=== PATIENT | male | born 1970 | race Caucasian/White ===

== ENCOUNTER → 2017-05-30 15:31 | Outpatient (REF) | payer MEDICAID, SELFPAY ==
[2017-05-30 19:18] LABS: Basophils # 0.1 K/mm3 (0-0.2); Basophils % 0.6 % (0.1-2.0); Eosinophils # 0.2 K/mm3 (0.0-0.4); Eosinophils % 1.4 % (0.1-12.0); Hematocrit 49.3 % (42.0-52.0); Hemoglobin 16.5 g/dL (14.1-18.0); Lymphocytes # 3.5 K/mm3 (0.7-4.5); Lymphocytes % 27.9 K/mm3 (10-50); Mean Corpuscular HGB Conc 33.4 g/dL (31.8-35.4); Mean Corpuscular Hemoglobin 29.5 pg (27.0-31.2); Mean Corpuscular Volume 88.1 fl (80-94); Mean Platelet Volume 8.2 fl (7.4-10.4); Monocytes # 0.8 K/mm3 (0.1-1.0); Monocytes % 6.2 % (1.7-9.3); Neutrophils % 63.8 % (37.0-80.0); Platelet Count 482 K/mm3 (142-424); Red Cell Distribution Width 12.6 % (11.5-17.5); White Blood Count 12.5 K/mm3 (4.8-10.8)
[2017-05-30 19:51] LABS: Alanine Aminotransferase 36 U/L (12-78); Albumin/Globulin Ratio 1.4 (1.1-1.8); Alkaline Phosphatase 65 U/L (46-116); Anion Gap 13.8 mEq/L (5-15); Aspartate Amino Transferase 18 U/L (15-37); Bilirubin,Total 0.4 mg/dL (0.2-1.0); Blood Urea Nitrogen 11 mg/dL (7-18); Calcium 9.3 mg/dL (8.5-10.1); Carbon Dioxide 29 mmol/L (21.0-32.0); Chloride 105 mmol/L (98-107); Chol/HDL Ratio 6.8 (1-3.5); Cholesterol 285 mg/dL (140-200); Creatinine,Serum 0.94 mg/dL (0.70-1.30); Estimated Glomerular Filt Rate 86 ml/min (>60); Free T4 (Free Thyroxine) 0.99 ng/dl (0.76-1.46); GFR (African American) 104 ML/MIN (>60); Globulin 3.6 gm/dl (1.3-3.2); Glucose 78 mg/dL (74-106); HDL Cholesterol 42 mg/dL (27-67); LDL Cholesterol 174 mg/dL (0-130); Potassium 4.8 mmoL/L (3.5-5.1); Sodium 143 mmol/L (136-145); Thyroid Stimulating Hormone 2.62 uIU/ml (0.358-3.740); Total Protein,Serum 8.6 gm/dL (6.4-8.2); Triglycerides 346 mg/dL (30-200); VLDL Cholesterol 69 mg/dL (0-40)
[2017-06-01 09:19] LABS: Hep A Ab, IgM Negative (Negative); Hepatitis B Core Antibody IgM Negative (Negative); Hepatitis B Surface Antigen Negative (Negative)
[2017-06-01 11:11] LABS: Hepatitis C Antibody 0.1 s/co ratio (0.0-0.9)
== END ==
LOC: LAB 15:31
PROVIDERS: Visit Provider Emergency Medicine
DX: I10 Essential (primary) hypertension (principal); M54.9 Dorsalgia, unspecified; Z86.59 Personal history of other mental and behavioral disorders
CPT/HCPCS: 80053; 80061; 80074; 84439; 84443; 85025

== ENCOUNTER 2017-06-20 16:00 | Outpatient (RCR) | payer MEDICAID, SELFPAY ==
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
== END 2017-06-20 16:05 | disposition home or self-care (01) ==
LOC: PT 16:00
PROVIDERS: Family Provider Internal Medicine Adolescent Medicine; PCP Emergency Medicine; Visit Provider Physician Assistant
DX: M54.9 Dorsalgia, unspecified (principal)
CPT/HCPCS: 97010; 97014; 97035; 97110; G0283

== ENCOUNTER → 2020-01-30 17:50 | Outpatient (CLI) | payer OTHER, SELFPAY ==
[2020-01-30 18:22] LABS: Basophils # 0.1 K/mm3 (0-0.2); Basophils % 0.7 % (0.1-2.0); Eosinophils # 0.1 K/mm3 (0.0-0.4); Eosinophils % 0.8 % (0.1-12.0); Hematocrit 46.3 % (42.0-52.0); Lymphocytes # 2.3 K/mm3 (0.7-4.5); Mean Corpuscular HGB Conc 32.5 g/dL (31.8-35.4); Mean Corpuscular Hemoglobin 29.1 pg (27.0-31.2); Mean Corpuscular Volume 89.7 fl (80-94); Mean Platelet Volume 7.4 fl (7.4-10.4); Monocytes # 0.8 K/mm3 (0.1-1.0); Monocytes % 6.6 % (1.7-9.3); Neutrophils # 8.2 K/mm3 (1.8-7.8); Neutrophils % 71.9 % (37.0-80.0); Platelet Count 483 K/mm3 (142-424); Red Blood Count 5.16 M/mm3 (4.60-6.20); Red Cell Distribution Width 13.9 % (11.5-17.5); White Blood Count 11.4 K/mm3 (4.8-10.8)
[2020-01-30 18:24] LABS: Chloride 101 mmol/L (98-107)
[2020-01-30 18:25] LABS: Potassium 5.2 mmoL/L (3.5-5.1); Sodium 142 mmol/L (136-145)
[2020-01-30 18:27] LABS: Alanine Aminotransferase 27 U/L (12-78); Alkaline Phosphatase 66 U/L (38-126); Aspartate Amino Transferase 32 U/L (17-59); Bilirubin,Total 0.6 mg/dl (0.2-1.3); Blood Urea Nitrogen 9 mg/dl (9-20); Estimated Glomerular Filt Rate 90 ml/min (>60); GFR (African American) 109 ML/MIN (>60)
[2020-01-30 18:28] LABS: Albumin/Globulin Ratio 1.6 (1.1-1.8); Anion Gap 17.2 mEq/L (5-15); Calcium 10.5 mg/dl (8.4-10.2); Carbon Dioxide 29 mmol/L (22.0-30.0); Chol/HDL Ratio 7.4 (1-3.5); Cholesterol 287 mg/dl (140-200); Globulin 3.2 g/dL (1.3-3.2); Glucose 122 mg/dl (74-100); HDL Cholesterol 39 mg/dl (40-60); Total Protein,Serum 8.2 g/dl (6.3-8.2); Triglycerides 239 mg/dl (30-150); VLDL Cholesterol 48 mg/dL (0-40)
[2020-01-30 18:39] LABS: Direct LDL Cholesterol 193.82 mg/dL (100-129)
[2020-01-30 18:46] LABS: Free T4 (Free Thyroxine) 1.26 ng/dl (0.78-2.19)
[2020-01-30 18:59] LABS: Thyroid Stimulating Hormone 3.39 uIU/mL (0.465-4.68)
== END ==
PROVIDERS: Visit Provider Emergency Medicine
DX: R53.83 Other fatigue (principal)
CPT/HCPCS: 80053; 80061; 84439; 84443; 85025

== ENCOUNTER → 2020-09-06 08:50 | Outpatient (CLI) | payer OTHER, SELFPAY ==
[2020-09-06 09:46] LABS: Amphetamine/Metha Screen,Urine Negative ng/ml (<1000)
[2020-09-06 09:47] LABS: Barbiturates Screen,Urine Negative ng/ml (<200); Benzodiazepines Screen,Urine Positive ng/ml (<200)
[2020-09-06 09:48] LABS: Cannabinoid Screen,Urine Negative ng/ml (<50)
[2020-09-06 09:49] LABS: Cocaine Screen,Urine Negative ng/ml (<300); Methadone Screen,Urine Negative ng/ml (<300)
[2020-09-06 09:50] LABS: Opiate Screen,Urine Negative ng/ml (<300)
[2020-09-06 09:51] LABS: Phencyclidine Screen,Urine Negative ng/ml (<25)
== END ==
PROVIDERS: Visit Provider Emergency Medicine
DX: Z79.899 Other long term (current) drug therapy (principal)
CPT/HCPCS: 80305

== ENCOUNTER → 2020-12-01 14:18 | Outpatient (CLI) | payer OTHER, SELFPAY ==
[2020-12-01 14:44] LABS: Amphetamine/Metha Screen,Urine Negative ng/ml (<1000)
[2020-12-01 14:45] LABS: Phencyclidine Screen,Urine Negative ng/ml (<25)
[2020-12-01 14:47] LABS: Barbiturates Screen,Urine Negative ng/ml (<200); Benzodiazepines Screen,Urine Positive ng/ml (<200)
[2020-12-01 14:48] LABS: Cannabinoid Screen,Urine Negative ng/ml (<50); Cocaine Screen,Urine Negative ng/ml (<300)
[2020-12-01 14:49] LABS: Methadone Screen,Urine Negative ng/ml (<300)
[2020-12-01 14:50] LABS: Opiate Screen,Urine Negative ng/ml (<300)
== END ==
PROVIDERS: Visit Provider Emergency Medicine
DX: Z79.899 Other long term (current) drug therapy (principal)
CPT/HCPCS: 80305

== ENCOUNTER → 2021-03-30 14:34 | Outpatient (CLI) | payer OTHER, SELFPAY ==
[2021-03-30 14:59] LABS: Barbiturates Screen,Urine Negative ng/ml (<200)
[2021-03-30 15:00] LABS: Amphetamine/Metha Screen,Urine Negative ng/ml (<1000); Benzodiazepines Screen,Urine Positive ng/ml (<200)
[2021-03-30 15:01] LABS: Cannabinoid Screen,Urine Positive ng/ml (<50)
[2021-03-30 15:02] LABS: Cocaine Screen,Urine Negative ng/ml (<300); Methadone Screen,Urine Negative ng/ml (<300)
[2021-03-30 15:03] LABS: Opiate Screen,Urine Negative ng/ml (<300)
[2021-03-30 15:04] LABS: Phencyclidine Screen,Urine Negative ng/ml (<25)
== END ==
PROVIDERS: Visit Provider Emergency Medicine
DX: Z79.899 Other long term (current) drug therapy (principal)
CPT/HCPCS: 80305

== ENCOUNTER → 2021-07-05 16:00 | Outpatient (CLI) | payer OTHER, SELFPAY ==
[2021-07-05 14:40] LABS: Amphetamine/Metha Screen,Urine Negative ng/ml (<1000)
[2021-07-05 14:41] LABS: Barbiturates Screen,Urine Negative ng/ml (<200); Benzodiazepines Screen,Urine Positive ng/ml (<200)
[2021-07-05 14:42] LABS: Cannabinoid Screen,Urine Positive ng/ml (<50)
[2021-07-05 14:43] LABS: Cocaine Screen,Urine Negative ng/ml (<300)
[2021-07-05 14:44] LABS: Opiate Screen,Urine Negative ng/ml (<300)
[2021-07-05 14:45] LABS: Phencyclidine Screen,Urine Negative ng/ml (<25)
[2021-07-05 15:04] LABS: Methadone Screen,Urine Negative ng/ml (<300)
== END ==
PROVIDERS: Visit Provider Emergency Medicine
DX: Z79.899 Other long term (current) drug therapy (principal)
CPT/HCPCS: 80305

== ENCOUNTER → 2021-10-04 13:52 | Outpatient (CLI) | payer OTHER, SELFPAY ==
[2021-10-04 14:21] LABS: Amphetamine/Metha Screen,Urine Negative ng/ml (<1000)
[2021-10-04 14:22] LABS: Barbiturates Screen,Urine Negative ng/ml (<200); Benzodiazepines Screen,Urine Positive ng/ml (<200)
[2021-10-04 14:23] LABS: Cannabinoid Screen,Urine Positive ng/ml (<50)
[2021-10-04 14:24] LABS: Cocaine Screen,Urine Negative ng/ml (<300); Methadone Screen,Urine Negative ng/ml (<300)
[2021-10-04 14:25] LABS: Opiate Screen,Urine Negative ng/ml (<300)
[2021-10-04 14:26] LABS: Phencyclidine Screen,Urine Negative ng/ml (<25)
== END ==
PROVIDERS: PCP Emergency Medicine; Visit Provider Emergency Medicine
DX: Z79.899 Other long term (current) drug therapy (principal)
CPT/HCPCS: 80305

== ENCOUNTER → 2021-12-28 06:16 | Outpatient (CLI) | payer OTHER, SELFPAY ==
[2021-12-28 13:39] LABS: Amphetamine/Metha Screen,Urine Negative ng/ml (<1000)
[2021-12-28 13:40] LABS: Barbiturates Screen,Urine Negative ng/ml (<200); Benzodiazepines Screen,Urine Positive ng/ml (<200)
[2021-12-28 13:41] LABS: Cannabinoid Screen,Urine Positive ng/ml (<50); Cocaine Screen,Urine Negative ng/ml (<300)
[2021-12-28 13:42] LABS: Methadone Screen,Urine Negative ng/ml (<300)
[2021-12-28 13:43] LABS: Opiate Screen,Urine Negative ng/ml (<300)
[2021-12-28 13:45] LABS: Phencyclidine Screen,Urine Negative ng/ml (<25)
== END ==
PROVIDERS: PCP Emergency Medicine; Visit Provider Emergency Medicine
DX: Z79.899 Other long term (current) drug therapy (principal)
CPT/HCPCS: 80305

== ENCOUNTER → 2022-03-29 15:10 | Outpatient (CLI) | payer OTHER, SELFPAY ==
[2022-03-29 16:00] LABS: Amphetamine/Metha Screen,Urine Negative ng/ml (<1000)
[2022-03-29 16:01] LABS: Barbiturates Screen,Urine Negative ng/ml (<200); Benzodiazepines Screen,Urine Positive ng/ml (<200)
[2022-03-29 16:03] LABS: Cannabinoid Screen,Urine Positive ng/ml (<50); Cocaine Screen,Urine Negative ng/ml (<300)
[2022-03-29 16:04] LABS: Methadone Screen,Urine Negative ng/ml (<300); Opiate Screen,Urine Negative ng/ml (<300)
[2022-03-29 16:05] LABS: Phencyclidine Screen,Urine Negative ng/ml (<25)
== END ==
PROVIDERS: PCP Emergency Medicine; Visit Provider Emergency Medicine
DX: Z79.899 Other long term (current) drug therapy (principal)
CPT/HCPCS: 80305

== ENCOUNTER 2022-06-02 10:12 | Emergency (ER) | payer OTHER, SELFPAY ==
[2022-06-02 10:58] VITALS: BP 99/68; PULSE 63; RESP 14; TEMP 36.4; O2SAT 97; BMI 26.6
[2022-06-02 11:10] VITALS: BP 101/72; PULSE 63; RESP 14; TEMP 36.4; O2SAT 97; BMI 26.5
--- NOTE | 2022-06-02 11:25 | EXP.UTC ---
Discharge Plan Disposition Patient Disposition: Home, Self-Care Condition: Good Prescriptions Prescriptions: New cephalexin 500 mg capsule 500 mg PO Q8H 7 Days Qty: 21 0RF No Action buprenorphine-naloxone 8-2 mg tablet, sublingual 2 tab SUBLINGUAL DAILY Label Comments: 2 TABLETS BY MOUTH SUBLINGUALLY BY MOUTH ONCE DAILY famotidine 20 mg tablet See Rx Instructions .ROUTE .COMPLEX Qty: 90 0RF Dose Instruction: TAKE 1 TABLET BY MOUTH ONCE DAILY Rx Instructions: TAKE 1 TABLET BY MOUTH ONCE DAILY alprazolam [Xanax] 0.5 mg tablet 0.5 mg PO QID Qty: 120 2RF lisinopril 40 mg tablet See Rx Instructions .ROUTE .COMPLEX Qty: 90 1RF Dose Instruction: TAKE 1 TABLET BY MOUTH ONCE DAILY Rx Instructions: TAKE 1 TABLET BY MOUTH ONCE DAILY escitalopram oxalate 10 mg tablet See Rx Instructions .ROUTE .COMPLEX Qty: 90 1RF Dose Instruction: TAKE 1 TABLET BY MOUTH DAILY Rx Instructions: TAKE 1 TABLET BY MOUTH DAILY hydrochlorothiazide 12.5 mg capsule See Rx Instructions .ROUTE .COMPLEX Qty: 90 1RF Dose Instruction: TAKE 1 CAPSULE BY MOUTH ONCE DAILY Rx Instructions: TAKE 1 CAPSULE BY MOUTH ONCE DAILY amlodipine 10 mg tablet See Rx Instructions .ROUTE .COMPLEX Qty: 90 1RF Dose Instruction: TAKE 1 TABLET BY MOUTH DAILY Rx Instructions: TAKE 1 TABLET BY MOUTH DAILY atorvastatin 10 mg tablet See Rx Instructions .ROUTE .COMPLEX Qty: 90 1RF Dose Instruction: TAKE 1 TABLET BY MOUTH AT BEDTIME Rx Instructions: TAKE 1 TABLET BY MOUTH AT BEDTIME Referrals Follow up/Referrals: Arnold Arias MD [Primary Care Provider] - See instructions Activity Restrictions/Add. Instructions Additional Instructions/Restrictions: Over the counter Motrin and/or Tylenol for pain Clean wound with antibacterial soap and water and pat dry Take antibiotics as prescribed Follow up with your Family Doctor if no improvement or any worsening of symptoms Straight to ER if any life threatening symptoms Clinical Impressions Clinical Impression: Dog bite Instructions Patient Instructions: Animal Bites, DI for Animal Bites, DI for Dog Bite Discharge ED Provider: Sandy Lam [facility] HPI General Stated complaint: dog bite on Lt thigh Mode of Arrival: Ambulatory Source of Information: Patient Limitations: No Limitations Time Seen by Provider: 06/02/22 11:25 Description of Symptoms (Recalled from Triage Doc. by RN): Reports getting bit by his friends dog 2 days ago on his left thigh. Concerned about infection and pain. No redness or drainage noted, does have bruising around the bite area. Reports he is not concerned about rabies. History of Present Illness Provider Complaint: Patient states that he was bitten by a friends dog a couple days ago on his left thigh area States that the dog has had all its shots and they have put it up to watch it States that he was worried the bite may be getting infected it was starting to look a little red and he has been having pain in the area didnt know if he needed something else for pain or not States that he is not worried about rabies he is worried about the infection and pain Related Data Home Medications Medication Instructions Recorded Confirmed buprenorphine 8 mg-naloxone 2 mg 2 tab sublingual DAILY 12/23/19 03/29/22 sublingual tablet Previous Rx's Medication Instructions Recorded famotidine 20 mg tablet See Rx Instructions .Route 10/04/21 .COMPLEX #90 tabs amlodipine 10 mg tablet See Rx Instructions .Route 03/28/22 .COMPLEX #90 tabs atorvastatin 10 mg tablet See Rx Instructions .Route 03/28/22 .COMPLEX #90 tabs escitalopram oxalate 10 mg tablet See Rx Instructions .Route 03/28/22 .COMPLEX #90 tabs hydrochlorothiazide 12.5 mg capsule See Rx Instructions .Route 03/28/22 .COMPLEX #90 caps lisinopril 40 mg tablet See Rx Instructions .Route 03/28/22 .COMPLEX #9
[2022-06-02 11:38] VITALS: BP 101/72; PULSE 63; RESP 14; TEMP 36.4; O2SAT 97
== END 2022-06-02 11:42 | disposition home or self-care (01) ==
PROVIDERS: Emergency Provider Nurse Practitioner; PCP Emergency Medicine
DX: S70.312A Abrasion, left thigh, initial encounter (principal); W54.0XXA Bitten by dog, initial encounter
CPT/HCPCS: 99212; 99213; G0463

== ENCOUNTER 2022-06-10 12:03 | Emergency (ER) | payer OTHER, SELFPAY ==
[2022-06-10 12:05] VITALS: BP 123/66; PULSE 88; RESP 18; TEMP 36.7; O2SAT 99; BMI 26.1
--- NOTE | 2022-06-10 12:24 | HMH.EDGENADL ---
Discharge Plan Disposition Patient Disposition: Home, Self-Care Prescriptions Prescriptions: No Action buprenorphine-naloxone 8-2 mg tablet, sublingual 2 tab SUBLINGUAL DAILY Label Comments: 2 TABLETS BY MOUTH SUBLINGUALLY BY MOUTH ONCE DAILY famotidine 20 mg tablet See Rx Instructions .ROUTE .COMPLEX Qty: 90 0RF Dose Instruction: TAKE 1 TABLET BY MOUTH ONCE DAILY Rx Instructions: TAKE 1 TABLET BY MOUTH ONCE DAILY alprazolam [Xanax] 0.5 mg tablet 0.5 mg PO QID Qty: 120 2RF lisinopril 40 mg tablet See Rx Instructions .ROUTE .COMPLEX Qty: 90 1RF Dose Instruction: TAKE 1 TABLET BY MOUTH ONCE DAILY Rx Instructions: TAKE 1 TABLET BY MOUTH ONCE DAILY escitalopram oxalate 10 mg tablet See Rx Instructions .ROUTE .COMPLEX Qty: 90 1RF Dose Instruction: TAKE 1 TABLET BY MOUTH DAILY Rx Instructions: TAKE 1 TABLET BY MOUTH DAILY hydrochlorothiazide 12.5 mg capsule See Rx Instructions .ROUTE .COMPLEX Qty: 90 1RF Dose Instruction: TAKE 1 CAPSULE BY MOUTH ONCE DAILY Rx Instructions: TAKE 1 CAPSULE BY MOUTH ONCE DAILY amlodipine 10 mg tablet See Rx Instructions .ROUTE .COMPLEX Qty: 90 1RF Dose Instruction: TAKE 1 TABLET BY MOUTH DAILY Rx Instructions: TAKE 1 TABLET BY MOUTH DAILY atorvastatin 10 mg tablet See Rx Instructions .ROUTE .COMPLEX Qty: 90 1RF Dose Instruction: TAKE 1 TABLET BY MOUTH AT BEDTIME Rx Instructions: TAKE 1 TABLET BY MOUTH AT BEDTIME cephalexin 500 mg capsule 500 mg PO Q8H 7 Days Qty: 21 0RF Referrals Follow up/Referrals: Arnold Arias MD [Primary Care Provider] - See instructions Activity Restrictions/Add. Instructions Additional Instructions/Restrictions: Your dog bite wounds are healing well. There is no evidence of any soft tissue infection. Your neurologic and vascular exam is normal. Your lower extremities are symmetrically normal and there is no clinical concern for DVT at this point. Please continue follow-up with your primary care doctor as indicated and continue and complete antibiotics Clinical Impressions Clinical Impression: Encounter for wound re-check Instructions Patient Instructions: Animal Bites Discharge ED Provider: Christopher Owusu General Adult HPI General Chief complaint: Animal Bite Stated complaint: dog bite LT thigh Time Seen by Provider: 06/10/22 12:24 Mode of Arrival: Ambulatory Limitations: No Limitations Description of Symptoms (Recalled from ER Triage Doc. by RN): PT WITH C/O DOG BITE TO OUTER LEFT THIGH EARLIER THIS MONTH, PT SEEN IN [facility]. C/O LEFT LEG SWELLING AND TINGLING OF LEFT FOOT History of Present Illness HPI narrative: Patient is a 52-year-old male who presents 1 week following a dog bite for wound reevaluation of his left lateral thigh. States that he was seen in the urgent treatment clinic and was given an antibiotic, he is unsure of what antibiotic this is. States that he has had some pain shooting down his leg all the way into his heel and has had some difficulty with walking secondary to the pain and wanted to make sure that everything was okay today. States that he at times also has [id number] type sensation in that leg. He claims that he came to the emergency department today to be evaluated for his wound. He subjectively states that he feels like his leg is heavier than normal and may be swollen as well. Related Data Home Medications Medication Instructions Recorded Confirmed buprenorphine 8 mg-naloxone 2 mg 2 tab sublingual DAILY 12/23/19 03/29/22 sublingual tablet Previous Rx's Medication Instructions Recorded famotidine 20 mg tablet See Rx Instructions .Route 10/04/21 .COMPLEX #90 tabs amlodipine 10 mg tablet See Rx Instructions .Route 03/28/22 .COMPLEX #90 tabs atorvastatin 10 mg tablet See Rx Instructions .Route 03/28/22 .COMPLEX #90 tabs escitalopram oxalate 10 mg tablet See Rx Instruc
--- NOTE | 2022-06-10 12:25 | PC.NURSE ---
DR LUNA AT BEDSIDE
[2022-06-10 12:45] VITALS: BP 120/70; PULSE 80; RESP 18; TEMP 36.7; O2SAT 99
== END 2022-06-10 12:45 | disposition home or self-care (01) ==
PROVIDERS: Emergency Provider Student in an Organized Health Care Education/Training Program; PCP Emergency Medicine
DX: Z48.00 Encounter for change or removal of nonsurgical wound dressing (principal)
CPT/HCPCS: 99282

== ENCOUNTER → 2022-07-13 13:53 | Outpatient (CLI) | payer OTHER, SELFPAY ==
--- NOTE | 2022-07-13 13:53 | CA_ITS ---
FINAL REPORT TECHNIQUE: Color Doppler, duplex Doppler and compression sonography of the left lower extremity deep venous systems was performed. CLINICAL HISTORY: left calf pain, edema, patient states he had a dog bite his left leg x 1 month ago. Since this time his leg has been giving out on him. HTN, HLD, smoker. FINDINGS: There is no evidence of deep venous thrombosis from the level of the groin to the calf. The veins are patent and compressible. IMPRESSION: No evidence of deep venous thrombosis left lower extremity. Reviewed, Interpreted and Dictated by Ramses Weeks III, MD Transcribed by Lorin Lezama Authenticated and [facility]
== END ==
PROVIDERS: PCP Emergency Medicine; Visit Provider Nurse Practitioner Family
DX: M79.662 Pain in left lower leg (principal); R60.0 Localized edema
CPT/HCPCS: 93971

== ENCOUNTER → 2022-09-06 09:30 | Outpatient (CLI) | payer OTHER, SELFPAY ==
[2022-09-06 17:21] LABS: Amphetamine/Metha Screen,Urine Negative ng/ml (<1000)
[2022-09-06 17:22] LABS: Barbiturates Screen,Urine Negative ng/ml (<200); Benzodiazepines Screen,Urine Positive ng/ml (<200)
[2022-09-06 17:23] LABS: Cannabinoid Screen,Urine Negative ng/ml (<50); Cocaine Screen,Urine Negative ng/ml (<300)
[2022-09-06 17:24] LABS: Methadone Screen,Urine Negative ng/ml (<300)
[2022-09-06 17:25] LABS: Opiate Screen,Urine Negative ng/ml (<300); Phencyclidine Screen,Urine Negative ng/ml (<25)
== END ==
PROVIDERS: PCP Emergency Medicine; Visit Provider Emergency Medicine
DX: Z79.899 Other long term (current) drug therapy (principal)
CPT/HCPCS: 80305

== ENCOUNTER 2022-09-19 12:03 | Emergency (ER) | payer OTHER, SELFPAY ==
[2022-09-19] VITALS (24 sets, daily range): BP systolic 65–127; BP diastolic 35–73; PULSE 48–126; RESP 14–18; TEMP 36.4–37.2; O2SAT 92–99; BMI 26.1
--- NOTE | 2022-09-19 12:10 | XR_ITS ---
FINAL REPORT CLINICAL HISTORY: soa FINDINGS: The heart size is normal. The mediastinum is within normal limits. There is no acute cardiopulmonary process. There is no pleural effusion. There is no pneumothorax. The bony thorax is intact. IMPRESSION: No acute cardiopulmonary process. Reviewed, Interpreted and Dictated by Ramses Weeks III, MD Transcribed by Naeem Betts Authenticated and [facility]
--- NOTE | 2022-09-19 12:11 | CT_ITS ---
FINAL REPORT TECHNIQUE: Postcontrast axial images through the abdomen and pelvis were performed. This study was performed with techniques to keep radiation doses as low as reasonably achievable, (ALARA). Individualized dose reduction techniques using automated exposure control or adjustment of mA and/or kV according to the patient's size were employed. CLINICAL HISTORY: abdominal pain trauma FINDINGS: Abdomen: The lung bases are clear. The liver is mildly fatty infiltrated. There is significant gallbladder wall thickening with adjacent inflammation having an appearance worrisome for acute cholecystitis. The spleen is unremarkable. The adrenals are normal. The pancreas is unremarkable. The kidneys enhance appropriately. The aorta is normal in caliber. There are multiple fluid-filled bowel loops that are nonspecific. No findings for mechanical bowel obstruction are identified. Pelvis: The appendix is normal. The urinary bladder is unremarkable. There is a small amount of free fluid which is likely reactive. There is a left L5 pars defect. IMPRESSION: Significant gallbladder wall thickening with adjacent inflammation worrisome for acute cholecystitis. Consider right upper quadrant ultrasound and/or nuclear medicine HIDA scan. Nonspecific bowel gas pattern. Reviewed, Interpreted and Dictated by Ramses Weeks III, MD Transcribed by Naeem Betts Authenticated and [facility]
--- NOTE | 2022-09-19 12:21 | PC.NURSE ---
ED MD AT BEDSIDE, MADE AWARE OF PT' S BLOOD PRESSURE
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
[2022-09-19 12:37] LABS: Basophils # 0.1 K/mm3 (0-0.2); Basophils % 0.2 % (0.1-2.0); Eosinophils # 0.3 K/mm3 (0.0-0.4); Eosinophils % 1.4 % (0.1-12.0); Hematocrit 43.5 % (42.0-52.0); Hemoglobin 14.4 g/dL (14.1-18.0); Lymphocytes % 8.6 % (10-50); Mean Corpuscular HGB Conc 33.1 g/dL (31.8-35.4); Mean Corpuscular Hemoglobin 30.9 pg (27.0-31.2); Mean Corpuscular Volume 93.3 fl (80-94); Mean Platelet Volume 7.6 fl (7.4-10.4); Monocytes # 1.6 K/mm3 (0.1-1.0); Monocytes % 6.8 % (1.7-9.3); Neutrophils # 19.2 K/mm3 (1.8-7.8); Platelet Count 439 K/mm3 (142-424); Red Blood Count 4.66 M/mm3 (4.60-6.20); Red Cell Distribution Width 12.8 % (11.5-17.5); White Blood Count 23.2 K/mm3 (4.8-10.8)
[2022-09-19 12:40] LABS: MANUAL DIFFERENTIAL MANUAL DIFFERENTIAL (MANUAL DIFF)
[2022-09-19 12:49] LABS: Lymphocytes % 14 % (10-50); Monocytes % 8 % (2-9); Neutrophils % 78 % (42-76); Platelet Estimate Slight Increase; RBC Morphology Normal; Total Cells Counted 100
[2022-09-19 12:52] LABS: Alanine Aminotransferase 37 U/L (12-78); Albumin Level 4.5 g/dl (3.5-5.0); Albumin/Globulin Ratio 1.4 (1.1-1.8); Alkaline Phosphatase 54 U/L (38-126); Anion Gap 20.3 mEq/L (5-15); Aspartate Amino Transferase 40 U/L (17-59); Bilirubin,Total 1.2 mg/dl (0.2-1.3); Blood Urea Nitrogen 21 mg/dl (9-20); Calcium 8.8 mg/dl (8.4-10.2); Carbon Dioxide 31 mmol/L (22.0-30.0); Chloride 88 mmol/L (98-107); Creatinine Clearance Estimated 47 mL/min (50-200); Estimated Glomerular Filt Rate 37 ml/min (>60); GFR (African American) 45 ML/MIN (>60); Globulin 3.3 g/dL (1.3-3.2); Glucose 122 mg/dl (74-100); Lipase 94 U/L (23-300); Potassium 4.3 mmoL/L (3.5-5.1); Sodium 135 mmol/L (136-145); Total Protein,Serum 7.8 g/dl (6.3-8.2)
--- NOTE | 2022-09-19 12:55 | PC.NURSE ---
MD MADE AWARE OF CONTINUED HYPOTENSION
--- NOTE | 2022-09-19 13:02 | PC.NURSE ---
XR AT BEDSIDE
--- NOTE | 2022-09-19 13:15 | PC.NURSE ---
PT RETURNED FROM CT, PT MOVED TO CARDIAC MONITORING ROOM, AWARE
--- NOTE | 2022-09-19 13:26 | PC.NURSE ---
covid swab sent to lab
[2022-09-19 13:28] LABS: Coronavirus 19, PCR Not Detected (NotDetected); Influenza A, PCR Not Detected (NotDetected); Influenza B, PCR Not Detected (NotDetected)
--- NOTE | 2022-09-19 14:02 | PC.NURSE ---
PT PROVIDED URINAL
--- NOTE | 2022-09-19 14:17 | PC.NURSE ---
PT ASKED FOR SOMETHING TO DRINK AND EAT ER MD SAYS NOT AT THIS TIME, WAITING TEST RESULTS, VISITOR AT BEDSIDE
[2022-09-19 14:20] LABS: Microscopic, Urine URINE MICROSCOPIC (MICROSCOPIC)
[2022-09-19 14:28] LABS: Appearance,Urine CLEAR (Clear); Bilirubin,Urine Negative (Negative); Blood, Urine Negative (Negative); Color,Urine YELLOW (Yellow); Glucose,Urine (UA) Negative (Negative); Ketones,Urine Negative (Negative); Leukocyte Esterase,Urine Negative (Negative); Nitrate,Urine Negative (Negative); Protein,Urine TRACE (Negative); Specific Gravity, Urine <= 1.005 (1.005-1.030); Urobilinogen,Urine 0.2 EU/dl (0.2)
--- NOTE | 2022-09-19 15:00 | PC.NURSE ---
ED MADE AWARE OF B/P
--- NOTE | 2022-09-19 15:05 | PC.NURSE ---
SPOKE WITH RADIOLOGY ABOUT CT RESULTS
[2022-09-19 15:07] LABS: Squamous Epithelial Cell,Urine Occasional #/hpf (0-5); WBC,Urine Occasional #/hpf (0-3)
--- NOTE | 2022-09-19 15:17 | PC.NURSE ---
PT UPDATED AT THIS TIME
--- NOTE | 2022-09-19 15:20 | PC.NURSE ---
CALLING DR BOND OFFICE HE HAS LEFT FOR THE DAY HAVING [employer] SPECIALIST PAGE DR BOND
--- NOTE | 2022-09-19 15:20 | PC.NURSE ---
DR AVILES AT BEDSIDE TO UPDATE PT AND FAMILY
--- NOTE | 2022-09-19 15:38 | PC.NURSE ---
LAI LI SPOKE WITH VARUN TELLO PT ADMITTED TO HOSPITALIST, POSSIBLE SURGERY
--- NOTE | 2022-09-19 15:43 | PC.NURSE ---
DR AVILES SPEAKING WITH HOSPITALIST
--- NOTE | 2022-09-19 15:44 | PC.NURSE ---
LAI LI SPEAKING WITH HOSPITALIST
--- NOTE | 2022-09-19 15:45 | PC.NURSE ---
AGENCY APPOINTMENTS SUPERVISOR NOTIFIED OF ADMISSION
--- NOTE | 2022-09-19 15:59 | EXP.HP ---
History of Present Illness *Admission Date: 09/19/22 *Reason for visit:: abdominal pain *History of present illness: Henry Trevino is a 52 year old male with a history of substance use disorder on suboxone, anxiety, hypertension and hyperlipidemia. Initial vitals: BP 82/62 - P 119 - RR 18 - T 97.5 degrees F - SpO2 97% RA Initial workup: CBC with 23K WBCs, CMP with cr 1.9 (0.9 in 2019), AST 40, ALT 37, alk phos 37 Blood cultures were collected CXR with no acute process abd/pel ct- Significant gallbladder wall thickening with adjacent inflammation worrisome for acute cholecystitis.? Consider right upper quadrant ultrasound and/or nuclear medicine HIDA scan. Nonspecific bowel gas pattern. ED medications: NS bolus x 3L #septic shock #acute cholecystitis #acute kidney injury #history of substance use disorder [facility] Disclaimer: The information contained in this section may have been updated after the patient was seen, as this information can be updated by other users. Medical History Anxiety Hyperlipidemia (~05/2017) Other termite control technician (current) drug therapy Social History Smoking Status: Current every day smoker tobacco type: cigarettes packs per day: 20 alcohol intake: never substance use type: former substance user and crack/cocaine current occupational status: disabled Travel in the last 8 weeks: None household members: family housing: house Review of Systems Constitutional Constitutional: Denies headache(s) ENT Ears, Nose, Mouth, and Throat: Denies headache(s) *Neurologic Neurologic: Denies headache(s) Meds Home Medications and Allergies Home Medications Medication Instructions Recorded Confirmed Type alprazolam 1 mg tablet 1 mg PO BID Anxiety 09/19/22 09/19/22 History amlodipine 10 mg tablet 10 mg PO DAILY High blood pressure 09/19/22 09/19/22 History atorvastatin 10 mg tablet 10 mg PO DAILY Cholesterol 09/19/22 09/19/22 History buprenorphine 8 mg-naloxone 2 mg 1 tab sublingual DAILY Chronic 09/19/22 09/19/22 History sublingual tablet opioid abuse escitalopram oxalate 20 mg tablet 20 mg PO DAILY Mood 09/19/22 09/19/22 History hydrochlorothiazide 12.5 mg capsule 12.5 mg PO DAILY Fluid 09/19/22 09/19/22 History lisinopril 40 mg tablet 40 mg PO DAILY High blood pressure 09/19/22 09/19/22 History New Prescriptions to Start Prescriptions: Allergies Allergy/AdvReac Type Severity Reaction Status Date / Time No Known Allergies Allergy Verified 09/19/22 16:21 Exam Data for Last 24 hours Vital signs and Labs for Last 24 Hours: Temp Pulse Resp BP Pulse Ox 97.5 F L 74 18 87/54 L 95 09/19/22 12:04 09/19/22 15:00 09/19/22 14:01 09/19/22 15:00 09/19/22 15:00 Laboratory Results - last 24 hr 09/19/22 12:25: WBC 23.2 H*, RBC 4.66, Hgb 14.4, Hct 43.5, MCV 93.3, MCH 30.9, MCHC 33.1, RDW 12.8, Plt Count 439 H, MPV 7.6, Neut % (Auto) 83.0 H, Lymph % (Auto) 8.6 L, [place] % (Auto) 6.8, Eos % (Auto) 1.4, Baso % (Auto) 0.2, Neut # (Auto) 19.2 H, Lymph # (Auto) 2.0, [place] # (Auto) 1.6 H, Eos # (Auto) 0.3, Baso # (Auto) 0.1, Total Counted 100, Neutrophils % (Manual) 78 H, Lymphocytes % (Manual) 14, Monocytes % (Manual) 8, Platelet Estimate Slight increase, RBC Morphology Normal 09/19/22 12:25: Sodium 135 L, Potassium 4.3, Chloride 88 L, Carbon Dioxide 31 H, Anion Gap 20.3 H, BUN 21 H, Creatinine 1.90 H, Estimated Creat Clear 47, Estimated GFR 37 L, Est GFR ( Amer) 45 L, Glucose 122 H, Calcium 8.8, Total Bilirubin 1.2, AST 40, ALT 37, Alkaline Phosphatase 54, Total Protein 7.8, Albumin 4.5, Globulin 3.3 H, Albumin/Globulin Ratio 1.4, Lipase 94 09/19/22 13:21: SARS-CoV-2 (PCR) Not detected, Influenza A Untype (PCR) Not detected, Influenza Type B (PCR) Not detected 09/19/22 14:05: Urine Color Yellow, Urine Appearance Clear, Urine pH 5.0, Ur Specific [place] <= 1.005, Urine Protein Trace,
--- NOTE | 2022-09-19 16:00 | PC.NURSE ---
Dr. Heath at BS
[2022-09-19 16:08] LABS: Lactic Acid 1.5 mmol/L (0.7-2.1)
--- NOTE | 2022-09-19 16:08 | PC.NURSE ---
1555 LEVOPHED STARTED AT THIS TIME, VERIFIED WITH Amrit BASS RN
--- NOTE | 2022-09-19 16:10 | PC.NURSE ---
RADIOLOGY NOTIFIED THAT PT IS READY FOR US
--- NOTE | 2022-09-19 16:20 | PC.WOUNDNOTE ---
ATTEMPTED TO GIVE REPORT, NO ANSWER PER NURSE
--- NOTE | 2022-09-19 16:20 | PC.NURSE ---
PT ROOM IS [address] [facility]
[2022-09-19 16:22] LABS: Procalcitonin 0.651 ng/mL (0.0-2.0)
--- NOTE | 2022-09-19 16:29 | PC.NURSE ---
REPORT GIVEN JEZ GARCIA
--- NOTE | 2022-09-19 16:35 | PC.NURSE ---
LEVOPHED AT 15MCG/HR AT THIS TIME
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
--- NOTE | 2022-09-19 16:47 | PC.NURSE ---
Dr. Michael speaking with [facility] for transfer
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
--- NOTE | 2022-09-19 17:25 | PC.NURSE ---
REPORT GIVEN TO JEZ ADAME AT ED
[2022-09-19 17:38] LABS: Barbiturates Screen,Urine Negative ng/ml (<200); Benzodiazepines Screen,Urine Positive ng/ml (<200)
[2022-09-19 17:39] LABS: Amphetamine/Metha Screen,Urine Negative ng/ml (<1000)
[2022-09-19 17:40] LABS: Cannabinoid Screen,Urine Negative ng/ml (<50); Cocaine Screen,Urine Negative ng/ml (<300)
[2022-09-19 17:41] LABS: Methadone Screen,Urine Negative ng/ml (<300)
[2022-09-19 17:42] LABS: Opiate Screen,Urine Negative ng/ml (<300); Phencyclidine Screen,Urine Negative ng/ml (<25)
--- NOTE | 2022-09-19 18:01 | PC.NURSE ---
CHECKED ON PT SLEEPING IN BED TAP CHOWDHURY AT BEDSIDE
--- NOTE | 2022-09-19 18:10 | PC.NURSE ---
EMS NOTIFIED OR TRANSFER, OTHER TRUCK OUT OF [facility] AT THIS TIME
--- NOTE | 2022-09-19 18:45 | PC.NURSE ---
PT RESTING WITH EYES CLOSED, RESPIRATIONS EVEN AND UNLABORED. FAMILY AT BEDSIDE
== END 2022-09-19 20:24 | disposition admitted as inpatient to this hospital (09) ==
LOC: ER 15:53 → 2ND 16:15 → ER 17:19
PROVIDERS: Internal Medicine; Surgery; Emergency Provider Emergency Medicine; PCP Emergency Medicine
PROC: 0FT44ZZ Resection of Gallbladder, Percutaneous Endoscopic Approach (ICD-10-PCS; CPT 47562; principal; 2022-09-20 08:30)
DX: K81.0 Acute cholecystitis (principal); F17.210 Nicotine dependence, cigarettes, uncomplicated; I95.9 Hypotension, unspecified
CPT/HCPCS: 71045; 74177; 80053; 80305; 81001; 83605; 83690; 84145; 85007; 85025; 87040; 87635; 87636; 96361; 96374; 96375; 99285; 99291; C9803; J2405; J2543; Q9967; U0003; U0005

== ENCOUNTER 2022-10-02 09:23 | Emergency (ER) | payer OTHER, SELFPAY ==
[2022-10-02 09:30] VITALS: BP 125/71; PULSE 86; RESP 18; TEMP 36.8; O2SAT 98; BMI 27.1
--- NOTE | 2022-10-02 09:41 | EXP.UTC ---
Discharge Plan Disposition Patient Disposition: Home, Self-Care Condition: Good Prescriptions Prescriptions: New clindamycin HCl 300 mg capsule 300 mg PO Q8H 7 Days Qty: 21 0RF cephalexin 500 mg capsule 500 mg PO QID 5 Days Qty: 20 0RF No Action amlodipine 10 mg tablet See Rx Instructions .ROUTE .COMPLEX Qty: 30 1RF Dose Instruction: TAKE 1 TABLET BY MOUTH DAILY Rx Instructions: TAKE 1 TABLET BY MOUTH DAILY atorvastatin 10 mg tablet 10 mg PO DAILY alprazolam 1 mg tablet 1 mg PO BID hydrochlorothiazide 12.5 mg capsule 12.5 mg PO DAILY lisinopril 40 mg tablet 40 mg PO DAILY escitalopram oxalate 20 mg tablet 20 mg PO DAILY buprenorphine-naloxone 8-2 mg tablet, sublingual 1 tab SUBLINGUAL DAILY Referrals Follow up/Referrals: Arnold Arias MD [Primary Care Provider] - See instructions Activity Restrictions/Add. Instructions Additional Instructions/Restrictions: *Start antibiotic(s) immediately and be sure to take as ordered for the FULL length of time although you may be feeling better or start to see improvement in the next 24-48 hours *Monitor closely. Outlined redness so that you can monitor easier. Follow up immediately for new or worsening symptoms including but not limited to redness, swelling, streaking from site fever or chills. *Never squeeze or pop these on your own. Seek immediate medical attention next time this occurs *Monitor Temp. Tylenol every 4 hours as needed and ibuprofen every 6 hours as needed (as long as your primary care doctor has told you that it is ok to take both. For fever, aches, pain. ER if no less that 101 despite Tylenol and ibuprofen ?Follow up with your family doctor/primary care physician in the next 48-72 hours if no improvement If any worsening of symptoms or redness, fever or chills go straight to ER Make sure to keep appointment tomorrow at Clinic Clinical Impressions Clinical Impression: Wound infection Instructions Patient Instructions: DI for Wound Infection Dis[place] ED [place] Lam [facility] [place] General Stated complaint: Redness around catheter Mode of Arrival: Ambulatory Source of Information: Patient Limitations: No Limitations Time Seen by Provider: 10/02/22 09:41 Description of Symptoms (Recalled from Triage Doc. by RN): PATIENT C/O REDNESS AROUND DRAIN TUBE TO RIGHT SIDE. POST-CHOLECYSTECTOMY ON 09/19 HEENT Symptoms (Recalled from RN notes): No Resp Symptoms (Recalled from RN notes): No Skin Symptoms (Recalled from RN notes): Yes MS Symptoms (Recalled from RN notes): No Functional Status (Recalled from RN notes): WNL History of Present Illness Provider Complaint: Patient state that he recently had surgery at and he has a drain in States that it slipped and fell out of his pocket and pulled on the area and he noticed it was looking red and warm States that he has appointment tomorrow at clinic but wanted to get someone to look at it today to see if he may need some antibiotics Related Data Home Medications Medication Instructions Recorded Confirmed alprazolam 1 mg tablet 1 mg PO BID Anxiety 09/19/22 09/19/22 atorvastatin 10 mg tablet 10 mg PO DAILY Cholesterol 09/19/22 09/19/22 buprenorphine 8 mg-naloxone 2 mg 1 tab sublingual DAILY Chronic 09/19/22 09/19/22 sublingual tablet opioid abuse escitalopram oxalate 20 mg tablet 20 mg PO DAILY Mood 09/19/22 09/19/22 hydrochlorothiazide 12.5 mg capsule 12.5 mg PO DAILY Fluid 09/19/22 09/19/22 lisinopril 40 mg tablet 40 mg PO DAILY High blood pressure 09/19/22 09/19/22 Previous Rx's Medication Instructions Recorded amlodipine 10 mg tablet See Rx Instructions .Route 09/21/22 .COMPLEX #30 tabs cephalexin 500 mg capsule 500 mg PO QID 5 days #20 caps 10/02/22 clindamycin HCl 300 mg capsule 300 mg PO Q8H 7 days #21 caps 10/02/22 Allergies Allergy/AdvReac Type Severity Reaction Status Date / Time No Known Allergies Allergy
[2022-10-02 09:57] VITALS: BP 125/71; PULSE 86; RESP 18; TEMP 36.8; O2SAT 98
== END 2022-10-02 10:08 | disposition home or self-care (01) ==
PROVIDERS: Emergency Provider Nurse Practitioner; PCP Emergency Medicine
DX: T81.49XA Infection following a procedure, other surgical site, initial encounter (principal); F17.210 Nicotine dependence, cigarettes, uncomplicated; I10 Essential (primary) hypertension; E78.5 Hyperlipidemia, unspecified; F41.9 Anxiety disorder, unspecified
CPT/HCPCS: 99212; 99214; G0463

== ENCOUNTER → 2022-11-29 12:56 | Outpatient (CLI) | payer OTHER, SELFPAY ==
[2022-11-29 16:59] LABS: Cannabinoid Screen,Urine Negative ng/ml (<50)
[2022-11-29 17:07] LABS: Methadone Screen,Urine Negative ng/ml (<300)
[2022-11-29 17:08] LABS: Opiate Screen,Urine Negative ng/ml (<300)
[2022-11-29 17:50] LABS: Amphetamine/Metha Screen,Urine Negative ng/ml (<1000); Barbiturates Screen,Urine Negative ng/ml (<200); Benzodiazepines Screen,Urine Positive ng/ml (<200); Phencyclidine Screen,Urine Negative ng/ml (<25)
[2022-11-29 17:57] LABS: Cocaine Screen,Urine Negative ng/ml (<300)
== END ==
PROVIDERS: PCP Emergency Medicine; Visit Provider Emergency Medicine
DX: F41.9 Anxiety disorder, unspecified (principal)
CPT/HCPCS: 80305

== ENCOUNTER → 2023-02-21 15:37 | Outpatient (CLI) | payer OTHER, SELFPAY ==
[2023-02-21 14:40] LABS: Barbiturates Screen,Urine Negative ng/ml (<200)
[2023-02-21 14:41] LABS: Benzodiazepines Screen,Urine Positive ng/ml (<200)
[2023-02-21 14:42] LABS: Amphetamine/Metha Screen,Urine Negative ng/ml (<1000); Methadone Screen,Urine Negative ng/ml (<300)
[2023-02-21 14:43] LABS: Cannabinoid Screen,Urine Negative ng/ml (<50)
[2023-02-21 14:44] LABS: Cocaine Screen,Urine Negative ng/ml (<300); Opiate Screen,Urine Negative ng/ml (<300)
[2023-02-21 14:45] LABS: Phencyclidine Screen,Urine Negative ng/ml (<25)
== END ==
PROVIDERS: PCP Emergency Medicine; Visit Provider Emergency Medicine
DX: Z79.899 Other long term (current) drug therapy (principal)
CPT/HCPCS: 80305

== ENCOUNTER 2023-05-21 12:37 | Outpatient (CLI) | payer OTHER, SELFPAY ==
[2023-05-21 19:25] LABS: Amphetamine/Metha Screen,Urine Negative ng/ml (<1000); Barbiturates Screen,Urine Negative ng/ml (<200); Benzodiazepines Screen,Urine Positive ng/ml (<200); Cannabinoid Screen,Urine Positive ng/ml (<50); Cocaine Screen,Urine Negative ng/ml (<300); Methadone Screen,Urine Negative ng/ml (<300); Opiate Screen,Urine Negative ng/ml (<300); Phencyclidine Screen,Urine Negative ng/ml (<25)
== END 2023-05-21 23:59 ==
LOC: LAB.DROPOF 12:37
PROVIDERS: PCP Physician Assistant; Visit Provider Physician Assistant
DX: Z79.899 Other long term (current) drug therapy (principal); F41.9 Anxiety disorder, unspecified
CPT/HCPCS: 80307

== ENCOUNTER 2023-10-14 16:06 | Emergency (ER) | payer OTHER, SELFPAY ==
[2023-10-14 16:07] VITALS: BP 163/128; PULSE 101; RESP 16; TEMP 36.6; O2SAT 97; BMI 22.2
--- NOTE | 2023-10-14 16:12 | PC.NURSE ---
DR LUNA AT BEDSIDE
--- NOTE | 2023-10-14 16:22 | CT_ITS ---
PROCEDURE INFORMATION: Exam: CT Lumbar Spine Without Contrast Exam date and time: 10/14/2023 4:50 PM Age: 53 years old Clinical indication: Low back pain; Additional info: Midline lower back pain TECHNIQUE: Imaging protocol: Computed tomography of the lumbar spine without contrast. Radiation optimization: All CT scans at this facility use at least one of these dose optimization techniques: automated exposure control; mA and/or kV adjustment per patient size (includes targeted exams where dose is matched to clinical indication); or iterative reconstruction. COMPARISON: CT ABDOMEN PELVIS W CON 09/19/2022 1:06 PM FINDINGS: Bones/joints: L1 anterior compression fracture unchanged from prior exam with proximally 50% loss of height. Moderate loss of intervertebral disc space with degenerative changes at lumbar spine greatest at L4 through S1 with moderate broad-base posterior disc protrusion at these levels resulting in mild bilateral neural foraminal stenosis. Bilateral pars defects of L5 with grade 1 anterolisthesis of L5 over S1. Gallbladder and bile ducts: There are surgical clips within the gallbladder fossa. Spleen: Multiple benign-appearing calcific densities of the spleen. Soft tissues: Unremarkable. Other findings: . IMPRESSION: 1. L1 anterior compression fracture unchanged from prior exam with proximally 50% loss of height. 2. Moderate loss of intervertebral disc space with degenerative changes at lumbar spine greatest at L4 through S1 with moderate broad-base posterior disc protrusion at these levels resulting in mild bilateral neural foraminal stenosis. 3. Bilateral pars defects of L5 with grade 1 anterolisthesis of L5 over S1.
--- NOTE | 2023-10-14 16:25 | ED_ITS ---
Discharge Plan Disposition Patient Disposition: Home, Self-Care Prescriptions Prescriptions: New ibuprofen 600 mg tablet 600 mg PO Q8H PRN (Reason: pain) 7 Days Qty: 21 0RF ondansetron 4 mg tablet,disintegrating 4 mg PO Q6H PRN (Reason: nausea and vomiting) 5 Days Qty: 20 0RF No Action alprazolam 1 mg tablet 1 mg PO BID Qty: 60 1RF Rx Instructions: fill 2nd step two omeprazole 40 mg capsule,delayed release(DR/EC) 40 mg PO DAILY Qty: 90 0RF Rx Instructions: swallow whole; do not crush, chew, dissolve, cut, break cholestyramine (with sugar) 4 gram powder 4 g PO BID Qty: 378 2RF Rx Instructions: administer w/meal; avoid other meds within 1hr before or 4-6hr after dose amlodipine 10 mg tablet See Rx Instructions .ROUTE .COMPLEX Qty: 90 1RF Dose Instruction: TAKE 1 TABLET BY MOUTH DAILY Rx Instructions: TAKE 1 TABLET BY MOUTH DAILY lisinopril 40 mg tablet See Rx Instructions .ROUTE .COMPLEX Qty: 90 0RF Dose Instruction: TAKE 1 TABLET BY MOUTH ONCE DAILY Rx Instructions: TAKE 1 TABLET BY MOUTH ONCE DAILY alprazolam [Xanax] 0.5 mg tablet 0.5 mg PO BID PRN (Reason: anxiety) Qty: 60 0RF Rx Instructions: tapering dose paroxetine HCl [Paxil] 20 mg tablet 20 mg PO QAM Qty: 90 0RF atorvastatin 10 mg tablet See Rx Instructions .ROUTE .COMPLEX Qty: 90 3RF Dose Instruction: TAKE 1 TABLET BY MOUTH AT BEDTIME Rx Instructions: TAKE 1 TABLET BY MOUTH AT BEDTIME hydrochlorothiazide 12.5 mg capsule See Rx Instructions .ROUTE .COMPLEX Qty: 90 3RF Dose Instruction: TAKE 1 CAPSULE BY MOUTH ONCE DAILY Rx Instructions: TAKE 1 CAPSULE BY MOUTH ONCE DAILY escitalopram oxalate 20 mg tablet 20 mg PO DAILY buprenorphine-naloxone 8-2 mg tablet, sublingual 1 tab SUBLINGUAL DAILY Referrals Follow up/Referrals: Provider,Referral, MD [Primary Care Provider] - See instructions Activity Restrictions/Add. Instructions Additional Instructions/Restrictions: No evidence of infection around your spine or emergent medical condition associated with your spine or spinal cord. This follows primary care doctor as needed. Clinical Impressions Clinical Impression: Lower back pain, Polysubstance abuse Discharge ED Provider: Esmer Owusu General Adult HPI General Chief complaint: PAIN Stated complaint: lower back pain Time Seen by Provider: 10/14/23 16:10 Mode of Arrival: Ambulatory Source of Information: Patient Limitations: No Limitations Description of Symptoms (Recalled from ER Triage Doc. by RN): Patient reports lower back pain that radiates around to his lower abdomen. States that this morning his pain was severe so he bought fentanyl, xanax and methodone off the streets for his pain and had no relief. History of Present Illness HPI narrative: Patient is a 53-year-old with a known history of polysubstance abuse who presents today with lower back pain. States he has a history of being on Suboxone but has been off all medications for many months due to a sick family member and also losing access to medications from Dr. Arias. Patient states that his back in the midline and off to both sides in the lumbar region has been hurting over the last several weeks. He denies any objective fevers saddle anesthesia lower extremity weakness urine or bowel incontinence etc. States that he got fentanyl and Xanax off the streets today without any improvement in his symptoms. Related Data Home Medications Medication Instructions Recorded Confirmed buprenorphine 8 mg-naloxone 2 mg 1 tab sublingual DAILY Chronic 09/19/22 05/21/23 sublingual tablet opioid abuse escitalopram oxalate 20 mg tablet 20 mg PO DAILY Mood 09/19/22 05/21/23 Previous Rx's Medication Instructions Recorded alprazolam 1 mg tablet 1 mg PO BID Anxiety #60 tabs 02/21/23 atorvastatin 10 mg tablet See Rx Instructions .Route 03/26/23 .COMPLEX #90 tabs hydrochlorothiazide 12.5 mg capsule See Rx Instructions .Route 03/26/23 .COMPLEX #90 caps alprazolam 0.5 mg tablet (Xanax) 0.5 mg PO BID PRN anxiety #60 tabs 05/21/23 amlodipine 10 mg tablet See Rx Instructions .Route 05/21/23 .COMPLEX #90 tabs cholestyramine (with sugar) 4 gram 4 g PO BID #378 grams 05/21/23 oral powder lisinopril 40 mg tablet See Rx Instructions .Route 05/21/23 .COMPLEX #90 tabs omeprazole 40 mg capsule,delayed 40 mg PO DAILY #90 caps 05/21/23 release paroxetine HCl 20 mg tablet (Paxil) 20 mg PO QAM #90 tabs 05/21/23 ibuprofen 600 mg tablet 600 mg PO Q8H PRN pain 7 days #21 10/14/23 tabs ondansetron 4 mg disintegrating 4 mg PO Q6H PRN nausea and 10/14/23 tablet vomiting 5 days #20 tabs Allergies Allergy/AdvReac Type Severity Reaction Status Date / Time No Known Allergies Allergy Verified 05/21/23 09:26 [facility] Disclaimer: The information contained in this section may have been updated after the patient was seen, as this information can be updated by other users. 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 Hyperlipidemia (~05/2017) Social History Smoking Status: Current every day smoker tobacco type: cigarettes packs per day: 20 alcohol intake: never substance use type: former substance user and crack/cocaine current occupational status: disabled Travel in the last 8 weeks: None household members: family housing: house ROS Obtained: Yes All systems reviewed & no additional complaints except as documented Physical Exam General General appearance: alert and in no apparent distress Respiratory Respiratory exam: Present normal lung sounds bilaterally Cardiovascular Cardiovascular exam: Present regular rate and normal rhythm Back Exam Back exam: Present tenderness (Patient tender throughout the entire lower back including the midline areas neurovascular intact distally) Neurological Exam Neurological exam: Present alert, oriented X3 and normal gait; Absent motor sensory deficit Medical Decision Making Wojciech Inquiry Pt receiving controlled substance: No Vital Signs: 10/14/23 16:07 10/14/23 17:26 10/14/23 17:30 Temperature 97.9 F Temperature Source Oral Pulse Rate 63 51 L Pulse Rate [Radial] 101 H Respiratory Rate 16 Blood Pressure 120/81 130/77 Blood Pressure [Right Arm] 163/128 H Blood Pressure Mean [Right Arm] 139 Blood Pressure Source Blood Pressure Source [Right Arm] Automatic Cuff Blood Pressure Position Blood Pressure Position [Right Arm] Sitting 02 Sat by Pulse Oximetry 97 100 99 Oxygen Delivery Method Room Air Room Air Room Air 10/14/23 18:00 10/14/23 18:31 10/14/23 19:06 Temperature 98.2 F Temperature Source Oral Pulse Rate 55 L 70 74 Pulse Rate [Radial] Respiratory Rate 18 Blood Pressure 131/66 144/84 H 144/84 H Blood Pressure [Right Arm] Blood Pressure Mean [Right Arm] Blood Pressure Source Automatic Cuff Blood Pressure Source [Right Arm] Blood Pressure Position Sitting Blood Pressure Position [Right Arm] 02 Sat by Pulse Oximetry 100 98 Oxygen Delivery Method Room Air Room Air Room Air Lab Data Lab results reviewed: Yes I reviewed the patient's lab results. Lab Results 10/14/23 16:14: Urine Color Yellow, Urine Appearance Clear, Urine pH 6.0, Ur Specific [place] <= 1.005, Urine Protein Negative, Urine Glucose (UA) Negative, Urine Ketones Negative, Urine Blood Negative, Urine Nitrate Negative, Urine Bilirubin Negative, Urine Urobilinogen 0.2, Ur Leukocyte Esterase Negative, Urine RBC None, Urine WBC None, Ur Squamous Epith Cells None, Urine Bacteria None 10/14/23 16:44: WBC 15.9 H, RBC 5.33, Hgb 15.8, Hct 47.1, MCV 88.3, MCH 29.6, MCHC 33.5, RDW 13.3, Plt Count 506 H, MPV 7.7, Neut % (Auto) 85.0 H, Lymph % (Auto) 10.9, [place] % (Auto) 2.8, Eos % (Auto) 0.8, Baso % (Auto) 0.5, Neut # (Auto) 13.5 H, Lymph # (Auto) 1.7, [place] # (Auto) 0.5, Eos # (Auto) 0.1, Baso # (Auto) 0.1, Total Counted 100, Neutrophils % (Manual) 84 H, Lymphocytes % (Manual) 14, Monocytes % (Manual) 2, Platelet Estimate Slight increase, RBC Morphology Normal, ESR 1, Sodium 136, Potassium 3.8, Chloride 100, Carbon Dioxide 22, Anion Gap 17.8 H, BUN 9, Creatinine 1.00, Estimated Creat Clear 76, Estimated GFR 78, Est GFR ( Amer) 95, Glucose 87, Calcium 9.9, Total Bilirubin 1.1, AST 39, ALT 30, Alkaline Phosphatase 60, C-Reactive Protein 0.6, Total Protein 9.4 H, Albumin 5.4 H, Globulin 4.0 H, Albumin/Globulin Ratio 1.4 10/14/23 16:44 10/14/23 16:44 Orders (Tests/Meds): ED MEDICATIONS Discontinued Medications Generic Name Dose Route Start Last Admin Trade Name Constantin PRN Reason Stop Dose Admin Acetaminophen 1,000 mg 10/14/23 16:22 10/14/23 16:53 Acetaminophen 1,000mg/100ml Vial IV 10/14/23 16:23 1,000 mg ONCE ONE Administration Lactated Ringer's 1,000 mls @ 999 mls/hr 10/14/23 16:30 10/14/23 16:54 Lactated Ringer's 1000 Ml Bag IV 10/14/23 17:30 999 mls/hr .Q1H1M PATRICK Administration Ketorolac Tromethamine 15 mg 10/14/23 16:22 10/14/23 16:53 Ketorolac 30mg/Ml Vial IV 10/14/23 16:23 15 mg ONCE ONE Administration ORDERS Category Date Time Status CT lumbar spine wo con Stat Cat Scan 10/14/23 16:22 Completed CBC w/Auto Diff [Complete Blood Count Auto Diff] Stat Lab 10/14/23 16:44 Completed CMP [Comprehensive Metabolic Panel] Stat Lab 10/14/23 16:44 Completed CRP [C-Reactive Protein] Stat Lab 10/14/23 16:44 Completed ESR [Erythrocyte Sedimentation Rate] Stat Lab 10/14/23 16:44 Completed UA [Urinalysis and Microscopic] Stat Lab 10/14/23 16:14 Completed Medical Decision Narrative: Patient is a 53-year-old male with a history of polysubstance abuse to use illicit drugs today from the streets presenting today with lower back pain. On differential would be epidural abscess discitis and osteomyelitis. He is afebrile on my exam. His neurologic exam is normal. Will get screening inflammatory markers give nonnarcotic medications including Tylenol and ibuprofen and IV fluids. I also get a CT scan given his midline pain. Reassessment 708 serial neurologic exams normal CT scan was performed to person interpreted shows L1 compression fracture this is chronic and old in comparison with old imaging. He is aware of this. No new or different acute abnormalities inflammatory markers are within normal limits I am not concerned about discitis osteomyelitis or epidural abscess in this particular patient. He has been reassured about this. He will follow-up with his primary care doctor regarding his chronic pain. Critical Care Critical Care Time Critical Care Time: No
[2023-10-14 16:26] LABS: Microscopic, Urine URINE MICROSCOPIC (MICROSCOPIC)
[2023-10-14 16:32] LABS: Appearance,Urine CLEAR (Clear); Bilirubin,Urine Negative (Negative); Blood, Urine Negative (Negative); Color,Urine YELLOW (Yellow); Glucose,Urine (UA) Negative (Negative); Ketones,Urine Negative (Negative); Leukocyte Esterase,Urine Negative (Negative); Nitrate,Urine Negative (Negative); Protein,Urine Negative (Negative); Specific Gravity, Urine <= 1.005 (1.005-1.030); Urobilinogen,Urine 0.2 EU/dl (0.2)
[2023-10-14] MEDS: KETOROLAC 30MG/ML VIAL 15 MG IV (16:53)
[2023-10-14] MEDS: ACETAMINOPHEN 1,000MG/100ML VIAL 1000 MG IV (16:53)
[2023-10-14] MEDS: LACTATED RINGERS 1000ML 1,000 ML 999 ML IV (16:54)
[2023-10-14 16:57] LABS: Basophils # 0.1 K/mm3 (0-0.2); Basophils % 0.5 % (0.1-2.0); Eosinophils # 0.1 K/mm3 (0.0-0.4); Eosinophils % 0.8 % (0.1-12.0); Hematocrit 47.1 % (42.0-52.0); Hemoglobin 15.8 g/dL (14.1-18.0); Lymphocytes # 1.7 K/mm3 (0.7-4.5); Lymphocytes % 10.9 % (10-50); Mean Corpuscular HGB Conc 33.5 g/dL (31.8-35.4); Mean Corpuscular Hemoglobin 29.6 pg (27.0-31.2); Mean Corpuscular Volume 88.3 fl (80-94); Mean Platelet Volume 7.7 fl (7.4-10.4); Monocytes # 0.5 K/mm3 (0.1-1.0); Monocytes % 2.8 % (1.7-9.3); Neutrophils # 13.5 K/mm3 (1.8-7.8); Platelet Count 506 K/mm3 (142-424); Red Blood Count 5.33 M/mm3 (4.60-6.20); Red Cell Distribution Width 13.3 % (11.5-17.5); White Blood Count 15.9 K/mm3 (4.8-10.8)
[2023-10-14 16:59] LABS: MANUAL DIFFERENTIAL MANUAL DIFFERENTIAL (MANUAL DIFF)
[2023-10-14 17:04] LABS: Chloride 100 mmol/L (98-107); Potassium 3.8 mmoL/L (3.5-5.1); Sodium 136 mmol/L (136-145)
[2023-10-14 17:07] LABS: Alanine Aminotransferase 30 U/L (12-78); Albumin Level 5.4 g/dl (3.5-5.0); Albumin/Globulin Ratio 1.4 (1.1-1.8); Alkaline Phosphatase 60 U/L (38-126); Anion Gap 17.8 mEq/L (5-15); Aspartate Amino Transferase 39 U/L (17-59); Bilirubin,Total 1.1 mg/dl (0.2-1.3); Blood Urea Nitrogen 9 mg/dl (9-20); Carbon Dioxide 22 mmol/L (22.0-30.0); Creatinine Clearance Estimated 76 mL/min (50-200); Estimated Glomerular Filt Rate 78 ml/min (>60); GFR (African American) 95 ML/MIN (>60); Total Protein,Serum 9.4 g/dl (6.3-8.2)
[2023-10-14 17:08] LABS: Calcium 9.9 mg/dl (8.4-10.2); Glucose 87 mg/dl (74-100)
[2023-10-14 17:13] LABS: C-Reactive Protein 0.6 mg/L (0-4)
[2023-10-14 17:26] VITALS: BP 120/81; PULSE 63; O2SAT 100
[2023-10-14 17:30] VITALS: BP 130/77; PULSE 51; O2SAT 99
[2023-10-14 17:30] LABS: Lymphocytes % 14 % (10-50); Monocytes % 2 % (2-9); Neutrophils % 84 % (42-76); Platelet Estimate Slight Increase; RBC Morphology Normal; Total Cells Counted 100
[2023-10-14 17:32] LABS: Erythrocyte Sedimentation Rate 1 mm/hr (0-20)
[2023-10-14 18:00] VITALS: BP 131/66; PULSE 55; O2SAT 100
[2023-10-14 18:31] VITALS: BP 144/84; PULSE 70; O2SAT 98
--- NOTE | 2023-10-14 19:05 | PC.NURSE ---
DR LUNA AT BEDSIDE TO UPDATE PT
[2023-10-14 19:06] VITALS: BP 144/84; PULSE 74; RESP 18; TEMP 36.8; O2SAT 100
== END 2023-10-14 19:11 | disposition home or self-care (01) ==
PROVIDERS: Emergency Provider Student in an Organized Health Care Education/Training Program
DX: M54.50 Low back pain, unspecified (principal); F19.129 Other psychoactive substance abuse with intoxication, unspecified; F17.210 Nicotine dependence, cigarettes, uncomplicated
CPT/HCPCS: 72131; 80053; 81001; 85007; 85025; 85651; 86140; 96361; 96374; 96375; 99284; J0131; J1885; J7120

== ENCOUNTER 2023-11-08 10:48 | Observation (INO) | payer OTHER, SELFPAY ==
[2023-11-08] VITALS (18 sets, daily range): BP systolic 116–146; BP diastolic 43–87; PULSE 47–83; RESP 12–21; TEMP 36.4–36.8; O2SAT 96–100; BMI 20.9
--- NOTE | 2023-11-08 10:54 | HMH.EDGENADL ---
Discharge Plan Disposition Chief Complaint: Chest Pain Discharge ED Provider: Haresh Chang Adult HPI General Chief complaint: Chest Pain Stated complaint: abdominal pain Time Seen by Provider: 11/08/23 10:51 History of Present Illness HPI narrative: Patient is a 53-year-old male with history of polysubstance abuse. Patient resents today for worsening abdominal pain for the last 3 days as well as episodes of nonbloody vomiting and diarrhea. The abdominal pain is crampy in nature and primarily in the epigastric area. He reports that it radiates into his chest with some occasional chest tightness. He reports that he last insufflated heroin 3 days ago. Reports intermittent chills, but no objective fevers. Denies any dysuria or hematuria. Denies any alcohol use. Related Data Home Medications Medication Instructions Recorded Confirmed buprenorphine 8 mg-naloxone 2 mg 1 tab sublingual DAILY Chronic 09/19/22 05/21/23 sublingual tablet opioid abuse escitalopram oxalate 20 mg tablet 20 mg PO DAILY Mood 09/19/22 05/21/23 Previous Rx's Medication Instructions Recorded alprazolam 1 mg tablet 1 mg PO BID Anxiety #60 tabs 02/21/23 atorvastatin 10 mg tablet See Rx Instructions .Route 03/26/23 .COMPLEX #90 tabs hydrochlorothiazide 12.5 mg capsule See Rx Instructions .Route 03/26/23 .COMPLEX #90 caps alprazolam 0.5 mg tablet (Xanax) 0.5 mg PO BID PRN anxiety #60 tabs 05/21/23 amlodipine 10 mg tablet See Rx Instructions .Route 05/21/23 .COMPLEX #90 tabs cholestyramine (with sugar) 4 gram 4 g PO BID #378 grams 05/21/23 oral powder lisinopril 40 mg tablet See Rx Instructions .Route 05/21/23 .COMPLEX #90 tabs omeprazole 40 mg capsule,delayed 40 mg PO DAILY #90 caps 05/21/23 release paroxetine HCl 20 mg tablet (Paxil) 20 mg PO QAM #90 tabs 05/21/23 ibuprofen 600 mg tablet 600 mg PO Q8H PRN pain 7 days #21 10/14/23 tabs ondansetron 4 mg disintegrating 4 mg PO Q6H PRN nausea and 10/14/23 tablet vomiting 5 days #20 tabs Allergies Allergy/AdvReac Type Severity Reaction Status Date / Time No Known Allergies Allergy Verified 05/21/23 09:26 [facility] Disclaimer: The information contained in this section may have been updated after the patient was seen, as this information can be updated by other users. Medical History (Updated 10/14/23 @ 16:24 by Esmer Owusu MD) Anxiety Other detention (current) drug therapy Hyperlipidemia (~05/2017) Social History Smoking Status: Current every day smoker tobacco type: cigarettes packs per day: 20 alcohol intake: never substance use type: former substance user and crack/cocaine current occupational status: disabled Travel in the last 8 weeks: None household members: family housing: house ROS Obtained: Yes Systems reviewed as appropriate & no additional complaints except as documented Gastrointestinal Gastrointestingal: Reports abdominal pain Physical Exam General General appearance: alert and anxious Head Head exam: atraumatic and normocephalic Eye Eye exam: Present PERRL and EOMI ENT ENT exam: Present normal oropharynx Neck Neck exam: Present full ROM and trachea midline Chest Chest inspection: Present symmetric chest wall rise Respiratory Respiratory exam: Present normal lung sounds bilaterally; Absent wheezes or stridor Cardiovascular Cardiovascular exam: Present regular rate and normal rhythm Abdominal Exam Abdominal exam: Present soft and tenderness (epigastric radiating to rlq); Absent distention Extremities Exam Extremities exam: Present full ROM Neurological Exam Neurological exam: Present alert and oriented X3 Psychiatric Psychiatric exam: Present anxious Skin Skin exam: Present warm and dry Medical Decision Making Medical Records Medical records reviewed: Yes I reviewed the patient's medical records. Wojciech Inquiry Pt receiving controlled substance: No Vital Signs: 11/08/23 10:48 11/08/23 10:52 11/08/23 11:00 Temperature 97.5 F L Temperature Source Oral Pulse Rate 60 60 Pulse Rate [Left Radial] 60 Respiratory Rate 18 17 Blood Pressure 127/80 127/73 Blood Pressure [Right Arm] 127/80 Blood Pressure Mean Blood Pressure Mean [Right Arm] 95 Blood Pressure Source [Right Arm] Automatic Cuff Blood Pressure Position [Right Arm] Sitting 02 Sat by Pulse Oximetry 100 100 100 Oxygen Delivery Method Room Air 11/08/23 11:45 11/08/23 12:00 11/08/23 12:30 Temperature Temperature Source Pulse Rate 53 L Pulse Rate [Left Radial] Respiratory Rate 16 12 14 Blood Pressure Blood Pressure [Right Arm] Blood Pressure Mean Blood Pressure Mean [Right Arm] Blood Pressure Source [Right Arm] Blood Pressure Position [Right Arm] 02 Sat by Pulse Oximetry 100 Oxygen Delivery Method 11/08/23 13:00 11/08/23 13:30 11/08/23 13:50 Temperature Temperature Source Pulse Rate Pulse Rate [Left Radial] Respiratory Rate 16 16 21 Blood Pressure 137/66 124/67 Blood Pressure [Right Arm] Blood Pressure Mean Blood Pressure Mean [Right Arm] Blood Pressure Source [Right Arm] Blood Pressure Position [Right Arm] 02 Sat by Pulse Oximetry Oxygen Delivery Method 11/08/23 14:00 11/08/23 14:30 11/08/23 15:01 Temperature Temperature Source Pulse Rate 47 L 62 61 Pulse Rate [Left Radial] Respiratory Rate Blood Pressure 133/75 146/84 H 118/87 Blood Pressure [Right Arm] Blood Pressure Mean 95 93 Blood Pressure Mean [Right Arm] Blood Pressure Source [Right Arm] Blood Pressure Position [Right Arm] 02 Sat by Pulse Oximetry 96 97 98 Oxygen Delivery Method Room Air Room Air Room Air Lab Data Lab results reviewed: Yes I reviewed the patient's lab results. Lab Results 11/08/23 13:25: WBC 18.1 H, RBC 5.33, Hgb 15.8, Hct 46.8, MCV 87.8, MCH 29.7, MCHC 33.8, RDW 13.0, Plt Count 553 H, MPV 7.4, Neut % (Auto) 91.5 H, Lymph % (Auto) 5.8 L, [place] % (Auto) 2.0, Eos % (Auto) 0.2, Baso % (Auto) 0.5, Neut # (Auto) 16.6 H, Lymph # (Auto) 1.1, [place] # (Auto) 0.4, Eos # (Auto) 0.0, Baso # (Auto) 0.1, Total Counted 100, Neutrophils % (Manual) 89 H, Lymphocytes % (Manual) 9 L, Monocytes % (Manual) 2, Platelet Estimate Moderate increase, RBC Morphology Normal, PT 10.8, INR 0.96, Sodium 140, Potassium 3.6, Chloride 106, Carbon Dioxide 25, Anion Gap 12.6, BUN 14, Creatinine 0.90, Estimated Creat Clear 79, Estimated GFR 88, Est GFR ( Amer) 107, Glucose 110 H, Calcium 9.8, Magnesium 1.9, Total Bilirubin 0.8, AST 35, ALT 36, Alkaline Phosphatase 79, Troponin I < 0.01, Total Protein 8.6 H, Albumin 4.9, Globulin 3.7 H, Albumin/Globulin Ratio 1.3, Lipase 1081 H, Plasma/Serum Alcohol < 10 11/08/23 13:25 11/08/23 13:25 Orders (Tests/Meds): ED MEDICATIONS Generic Name Dose Route Start Last Admin Trade Name Freq PRN Reason Stop Dose Admin Morphine Sulfate 4 mg 11/08/23 14:35 11/08/23 15:23 Morphine 4mg/Ml Syringe IV 12/08/23 14:34 4 mg Q2HP PRN Administration Severe Pain (7-10) Sodium Chloride 10 ml 11/08/23 11:16 Sodium Chloride 0.9% 10ml Vial IV 12/08/23 11:15 NEEDED PRN to Dilute Lorazepam inj Discontinued Medications Generic Name Dose Route Start Last Admin Trade Name Freq PRN Reason Stop Dose Admin Acetaminophen 1,000 mg 11/08/23 11:16 11/08/23 12:05 Acetaminophen 500mg Tab PO 11/08/23 11:17 1,000 mg ONCE ONE Administration Hydroxyzine Pamoate 50 mg 11/08/23 15:33 11/08/23 15:40 Hydroxyzine Pamoate 25mg Capsule PO 11/08/23 15:34 50 mg ONCE ONE Administration Lactated Ringer's 1,000 mls @ 999 mls/hr 11/08/23 11:16 11/08/23 12:06 Lactated Ringer's 1000 Ml Bag IV 11/08/23 12:16 Not Given .Q1H1M ONE Ketorolac Tromethamine 15 mg 11/08/23 11:16 11/08/23 12:06 Ketorolac 30mg/Ml Vial IV 11/08/23 11:17 15 mg ONCE ONE Administration Lorazepam 1 mg 11/08/23 11:16 11/08/23 12:06 Lorazepam 2mg/Ml Vial IV 11/08/23 11:17 1 mg ONCE ONE Administration Ondansetron HCl 4 mg 11/08/23 11:16 11/08/23 12:06 Ondansetron 4mg/2ml Vial IV 11/08/23 11:17 4 mg ONCE ONE Administration ORDERS Category Date Time Status CT abdomen pelvis wo con Stat Cat Scan 11/08/23 14:33 Taken CXR --portable [XR chest portable] Stat Exams 11/08/23 11:16 Completed Blood alcohol [Ethyl Alcohol] Stat Lab 11/08/23 13:25 Completed CBC w/Auto Diff [Complete Blood Count Auto Diff] Stat Lab 11/08/23 13:25 Completed CMP [Comprehensive Metabolic Panel] Stat Lab 11/08/23 13:25 Completed Lipase Stat Lab 11/08/23 13:25 Completed MAG [Magnesium] Stat Lab 11/08/23 13:25 Completed PT INR [Prothrombin Time INR] Stat Lab 11/08/23 13:25 Completed Troponin I Q3H Lab 11/08/23 14:30 Ordered Troponin I Q3H Lab 11/08/23 17:30 Ordered Troponin I Stat Lab 11/08/23 13:25 Completed UA [Urinalysis and Microscopic] Stat Lab 11/08/23 16:00 Ordered UDS [Drug Screen,Urine] Stat Lab 11/08/23 11:16 Ordered ECG Data Tracing #1: I reviewed this ECG and interpreted as documented below: Independently interpreted by myself demonstrate normal sinus rhythm with a rate of 47, no acute ischemic ST changes. Medical Decision Narrative: In summary, this 53-year-old male presents to the emergency department today with abdominal pain. On initial evaluation patient is anxious, and complaining of diffuse abdominal pain, most specific over his epigastrium on my palpation. Otherwise his abdomen is soft and not peritonitic. Pulses are full and he appears warm and well-perfused.. Differential diagnosis includes but is not limited to pancreatitis, cholelithiasis, cholecystitis, bowel obstruction, ACS, opiate withdrawal. Based on these concerns, I ordered CBC, CMP, lipase, alcohol level, EKG, chest x-ray, CT abdomen pelvis. I considered obtaining a CT abdomen pelvis with IV contrast, however patient reports that he has an allergy to the contrast is not sure what happened this. Given that he has a moderate amount of central adiposity, I feel that any significant fat stranding would be appreciable on CT and so I think that proceeding with a noncontrasted scan is appropriate. I reviewed prior records including prior ER visits which demonstrate visit for back pain and a chronic lumbar fracture as well as opiate use disorder.. ECG personally interpreted demonstrates as listed above. Patient received IV Ativan, IV morphine x 2, IV Zofran, LR bolus, , Hydroxyzine, Tylenol, Toradol for treatment. Labs personally reviewed demonstrate moderate leukocytosis to 18, neutrophilic predominance, thrombocytosis to 553, electrolytes grossly within normal limits. Lipase 1081 which is significantly elevated from prior, independent review. Alcohol negative. Urinalysis and UDS pending handoff to admitting provider.. XR personally interpreted demonstrates no acute cardiopulmonary process. CT imaging personally interpreted demonstrate no evidence of bowel obstruction, no pancreatic pseudocyst or any free air.. I had an interactive discussion with Dr. Lopez with the hospitalist service regarding patient's presentation and laboratory findings of elevated lipase greater than 3 times the upper limit of normal, consistent with acute pancreatitis. Ultimately, he agrees to admit the patient to service for further workup and definitive management. Patient mentions from the service hemodynamically stable condition.. On reassessment patient reports continued pain control needs, administered additional morphine IV push 4 mg. Patient's prescriptions were reviewed and alprazolam not filled in over a year.. Admit to hospital medicine. Critical Care Critical Care Time Critical Care Time: No
--- NOTE | 2023-11-08 10:59 | ECG_ITS ---
APPROVED REPORT Exam: Resting ECG HR:47 bpm ECG Measurements Heart Rate 47 AXES NJ 135 P 61 QRSd 102 QRS 39 QT 469 T 57 QTc 431 Conclusion SINUS BRADYCARDIA Electronically signed by : Haresh Chang, 11/08/2023 17:50:50
--- NOTE | 2023-11-08 11:16 | XR_ITS ---
FINAL REPORT CLINICAL HISTORY: sob COMPARISON: 09/19/2022 FINDINGS: SINGLE-VIEW CHEST The heart size is normal. The mediastinum is normal. The lungs are clear. There is no pneumothorax. IMPRESSION: No acute cardiopulmonary process. Reviewed, Interpreted and Dictated by Ramses Weeks III, MD Transcribed by Lorin Lezama Authenticated and [facility]
--- NOTE | 2023-11-08 11:55 | PC.NURSE ---
attempted multiple times for blood, unsuccessful at this time
--- NOTE | 2023-11-08 11:57 | PC.NURSE ---
contacted lab for attempt to draw blood
--- NOTE | 2023-11-08 12:04 | PC.NURSE ---
pt refused for lab to stick for blood. aware
[2023-11-08] MEDS: ACETAMINOPHEN 500MG TAB 1000 MG PO (12:05)
[2023-11-08] MEDS: ONDANSETRON 4MG/2ML VIAL 4 MG IV (12:06)
[2023-11-08] MEDS: LORazepam 2MG/ML VIAL 1 MG IV (12:06)
[2023-11-08] MEDS: KETOROLAC 30MG/ML VIAL 15 MG IV (12:06)
--- NOTE | 2023-11-08 13:06 | PC.NURSE ---
PANCHITO at for us and blood draw
[2023-11-08 13:57] LABS: Basophils # 0.1 K/mm3 (0-0.2); Basophils % 0.5 % (0.1-2.0); Eosinophils % 0.2 % (0.1-12.0); Hematocrit 46.8 % (42.0-52.0); Hemoglobin 15.8 g/dL (14.1-18.0); Lymphocytes # 1.1 K/mm3 (0.7-4.5); Lymphocytes % 5.8 % (10-50); Mean Corpuscular HGB Conc 33.8 g/dL (31.8-35.4); Mean Corpuscular Hemoglobin 29.7 pg (27.0-31.2); Mean Corpuscular Volume 87.8 fl (80-94); Mean Platelet Volume 7.4 fl (7.4-10.4); Monocytes # 0.4 K/mm3 (0.1-1.0); Neutrophils # 16.6 K/mm3 (1.8-7.8); Neutrophils % 91.5 % (37.0-80.0); Platelet Count 553 K/mm3 (142-424); Red Blood Count 5.33 M/mm3 (4.60-6.20); White Blood Count 18.1 K/mm3 (4.8-10.8)
[2023-11-08 14:01] LABS: Alanine Aminotransferase 36 U/L (12-78); Albumin Level 4.9 g/dl (3.5-5.0); Albumin/Globulin Ratio 1.3 (1.1-1.8); Alkaline Phosphatase 79 U/L (38-126); Anion Gap 12.6 mEq/L (5-15); Aspartate Amino Transferase 35 U/L (17-59); Bilirubin,Total 0.8 mg/dl (0.2-1.3); Blood Urea Nitrogen 14 mg/dl (9-20); Calcium 9.8 mg/dl (8.4-10.2); Carbon Dioxide 25 mmol/L (22.0-30.0); Chloride 106 mmol/L (98-107); Creatinine Clearance Estimated 79 mL/min (50-200); Estimated Glomerular Filt Rate 88 ml/min (>60); GFR (African American) 107 ML/MIN (>60); Globulin 3.7 g/dL (1.3-3.2); Glucose 110 mg/dl (74-100); Magnesium 1.9 mg/dl (1.6-2.3); Potassium 3.6 mmoL/L (3.5-5.1); Sodium 140 mmol/L (136-145); Total Protein,Serum 8.6 g/dl (6.3-8.2)
[2023-11-08 14:02] LABS: INR 0.96 (0.9-1.1); Lipase 1081 U/L (23-300); Prothrombin Time 10.8 seconds (10.1-12.5)
[2023-11-08 14:10] LABS: MANUAL DIFFERENTIAL MANUAL DIFFERENTIAL (MANUAL DIFF)
[2023-11-08 14:17] LABS: Troponin I < 0.01 ng/ml (0.00-0.034)
--- NOTE | 2023-11-08 14:33 | CT_ITS ---
FINAL REPORT CLINICAL HISTORY: EPIGASTRIC TTP RADIATING TO RLQ, LEUKOCYTOSIS COMPARISON: 09/19/2022 FINDINGS: Axial CT images of the abdomen and pelvis were obtained without intravenous contrast. Coronal and sagittal reformatted images were also obtained.This study was performed with techniques to keep radiation doses as low as reasonably achievable (ALARA). Individualized dose reduction techniques using automated exposure control or adjustment of mA and/or kV according to the patient's size were employed. Abdomen:The lung bases are clear. Mild gynecomastia is present. There is no evidence of renal stone or hydronephrosis. Mild fatty infiltration of the liver is present. The gallbladder has been surgically resected. The liver, spleen and pancreas otherwise have an unremarkable, unenhanced appearance. No mass or adenopathy is seen. No inflammatory process is identified. Pelvis: Images of the pelvis reveal no evidence of ureteral dilation or ureteral stone.No mass or abnormal fluid collection is identified. There is a small umbilical hernia containing fat. Mild vascular calcifications are noted. There are multiple nonspecific fluid-filled bowel loops, worrisome for enteritis. There is a chronic L1 compression fracture and a left L5 pars defect, also seen on the prior CT. IMPRESSION: Multiple nonspecific fluid-filled bowel loops, worrisome for enteritis. Reviewed, Interpreted and Dictated by Ramses Weeks III, MD Transcribed by Megan Choudhary Authenticated and [facility]
[2023-11-08 14:46] LABS: Lymphocytes % 9 % (10-50); Monocytes % 2 % (2-9); Neutrophils % 89 % (42-76); Platelet Estimate Moderate Increase; RBC Morphology Normal; Total Cells Counted 100
[2023-11-08] MEDS: MORPHINE 4MG/ML SYRINGE 4 MG IV (15:23)
[2023-11-08] MEDS: hydrOXYzine pamoate 25MG CAPSULE 50 MG PO (15:40)
--- NOTE | 2023-11-08 15:43 | PC.NURSE ---
JUSTIN FLANAGAN aware of admission for acute pancreatitis
[2023-11-08 15:56] LABS: Ethyl Alcohol < 10 mg/dl (0-10)
[2023-11-08 16:04] LABS: Microscopic, Urine URINE MICROSCOPIC (MICROSCOPIC)
[2023-11-08 16:06] LABS: Appearance,Urine CLEAR (Clear); Blood, Urine Negative (Negative); Color,Urine YELLOW (Yellow); Glucose,Urine (UA) Negative (Negative); Ketones,Urine 3+ (Negative); Leukocyte Esterase,Urine Negative (Negative); Nitrate,Urine Negative (Negative); PH,Urine 6.5 (5.0-8.5); Protein,Urine TRACE (Negative); Urobilinogen,Urine 0.2 EU/dl (0.2)
--- NOTE | 2023-11-08 16:13 | P.HP_ITS ---
History of Present Illness *History of present illness: Patient with past medical history of hypertension, hyperlipidemia, anxiety, polysubstance abuse, history of cholecystectomy,presents complaining of abdominal pain starting at 4 AM. Patient describes abdominal pain as 10 out of 10, diffuse, constant, relieved by pain medicines in emergency room. Patient admits to using street drugs, and states last use was 3 days ago. Admits to hot/cold spells, sweating, nausea, vomiting, diarrhea since [address] abdomen/pelvis shows no pseudocyst or phlegmon. Lipase over thousand at time of admission. Denies alcohol use. [facility] Disclaimer: The information contained in this section may have been updated after the patient was seen, as this information can be updated by other users. Medical History (Updated 11/08/23 @ 16:18 by Mir Lopez MD) Anxiety Other skilled nursing (current) drug therapy Hyperlipidemia (~05/2017) Social History Smoking Status: Current every day smoker tobacco type: cigarettes packs per day: 20 alcohol intake: never substance use type: former substance user and crack/cocaine current occupational status: disabled Travel in the last 8 weeks: None household members: family housing: house Review of Systems Review of Systems Review of systems:: pertinent systems reviewed and negative unless documented below Meds Home Medications and Allergies Home Medications Medication Instructions Recorded Confirmed Type buprenorphine 8 mg-naloxone 2 mg 1 tab sublingual DAILY Chronic 09/19/22 05/21/23 History sublingual tablet opioid abuse escitalopram oxalate 20 mg tablet 20 mg PO DAILY Mood 09/19/22 05/21/23 History alprazolam 1 mg tablet 1 mg PO BID Anxiety #60 tabs 02/21/23 05/21/23 Rx atorvastatin 10 mg tablet See Rx Instructions .Route 03/26/23 05/21/23 Rx .COMPLEX #90 tabs hydrochlorothiazide 12.5 mg capsule See Rx Instructions .Route 03/26/23 05/21/23 Rx .COMPLEX #90 caps alprazolam 0.5 mg tablet (Xanax) 0.5 mg PO BID PRN anxiety #60 tabs 05/21/23 05/21/23 Rx amlodipine 10 mg tablet See Rx Instructions .Route 05/21/23 05/21/23 Rx .COMPLEX #90 tabs cholestyramine (with sugar) 4 gram 4 g PO BID #378 grams 05/21/23 05/21/23 Rx oral powder lisinopril 40 mg tablet See Rx Instructions .Route 05/21/23 05/21/23 Rx .COMPLEX #90 tabs omeprazole 40 mg capsule,delayed 40 mg PO DAILY #90 caps 05/21/23 05/21/23 Rx release paroxetine HCl 20 mg tablet (Paxil) 20 mg PO QAM #90 tabs 05/21/23 05/21/23 Rx ibuprofen 600 mg tablet 600 mg PO Q8H PRN pain 7 days #21 10/14/23 Rx tabs ondansetron 4 mg disintegrating 4 mg PO Q6H PRN nausea and 10/14/23 Rx tablet vomiting 5 days #20 tabs New Prescriptions to Start Prescriptions: Allergies Allergy/AdvReac Type Severity Reaction Status Date / Time No Known Allergies Allergy Verified 05/21/23 09:26 Exam Data for Last 24 hours Vital signs and Labs for Last 24 Hours: Temp Pulse Resp BP Pulse Ox O2 Del Method 97.5 F L 61 21 118/87 98 Room Air 11/08/23 10:48 11/08/23 15:01 11/08/23 13:50 11/08/23 15:01 11/08/23 15:01 11/08/23 15:01 Laboratory Results - last 24 hr 11/08/23 13:25: WBC 18.1 H, RBC 5.33, Hgb 15.8, Hct 46.8, MCV 87.8, MCH 29.7, MCHC 33.8, RDW 13.0, Plt Count 553 H, MPV 7.4, Neut % (Auto) 91.5 H, Lymph % (Auto) 5.8 L, [place] % (Auto) 2.0, Eos % (Auto) 0.2, Baso % (Auto) 0.5, Neut # (Auto) 16.6 H, Lymph # (Auto) 1.1, [place] # (Auto) 0.4, Eos # (Auto) 0.0, Baso # (Auto) 0.1, Total Counted 100, Neutrophils % (Manual) 89 H, Lymphocytes % (Manual) 9 L, Monocytes % (Manual) 2, Platelet Estimate Moderate increase, RBC Morphology Normal, PT 10.8, INR 0.96, Sodium 140, Potassium 3.6, Chloride 106, Carbon Dioxide 25, Anion Gap 12.6, BUN 14, Creatinine 0.90, Estimated Creat Clear 79, Estimated GFR 88, Est GFR ( Amer) 107, Glucose 110 H, Calcium 9.8, Magnesium 1.9, Total Bilirubin 0.8, AST 35, ALT 36, Alkaline Phosphatase 79, Troponin I < 0.01, Total Protein 8.6 H, Albumin 4.9, Globulin 3.7 H, Albumin/Globulin Ratio 1.3, Lipase 1081 H, Plasma/Serum Alcohol < 10 I & O for Last 24 hours: Intake & Output 11/05/23 11/06/23 11/07/23 11/08/23 23:59 23:59 23:59 23:59 Weight 58.967 kg Constitutional Constitutional: no acute distress *Routine HEENT Exam Head: Present normocephalic Eye: Present EOMI and normal accommodation ENT: Present mucous membranes moist *Routine Neck Exam Neck: Present supple and full ROM *Routine Respiratory Exam Respiratory: Present CTA bilaterally *Routine Cardiovascular Exam Cardiovascular: Present RRR, Normal S1 and Normal S2 *Routine Abdominal Exam Abdominal: Present soft, tenderness, distended and guarding; Absent rebound *Routine Rectal Exam Rectal:: deferred *Routine Genitalia Exam Genitalia:: deferred *Routine Extremities Exam Extremities: Present full ROM and normal capillary refill *Routine Skin Exam Skin: Present intact and warm *Routine Neurological Exam Neurological: Present alert and oriented X3 Assessment and Plan *Assessment and plan (1) Polysubstance abuse: Status: Acute Category: Medical Code(s): F19.10 - Other psychoactive substance abuse, uncomplicated (2) Status post cholecystectomy: Status: Chronic Category: Surgical Code(s): Z90.49 - Acquired absence of other specified parts of digestive tract (3) Hyperlipidemia: Status: Chronic Category: Medical Code(s): E78.5 - Hyperlipidemia, unspecified (4) HTN (hypertension): Status: Chronic Category: Medical Code(s): I10 - Essential (primary) hypertension (5) Pancreatitis: Status: Acute Category: Medical Code(s): K85.90 - Acute pancreatitis without necrosis or infection, unspecified Plan Acute pancreatitis: ? N.p.o., maintenance IV fluids, correct electrolytes as needed PPx: Lovenox subcutaneous CODE STATUS full FEN:mIVF
[2023-11-08 16:15] LABS: Bacteria,Urine Trace /lpf; Bilirubin,Urine 1+ (Negative); Mucus,Urine Trace /lpf; RBC,Urine Occasional #/hpf (0-3); Squamous Epithelial Cell,Urine Occasional #/hpf (0-5); WBC,Urine Occasional #/hpf (0-3)
[2023-11-08 16:18] LABS: Amphetamine/Metha Screen,Urine Negative ng/ml (<1000)
[2023-11-08 16:19] LABS: Barbiturates Screen,Urine Negative ng/ml (<200)
[2023-11-08 16:20] LABS: Benzodiazepines Screen,Urine Positive ng/ml (<200); Cannabinoid Screen,Urine Positive ng/ml (<50)
[2023-11-08 16:21] LABS: Cocaine Screen,Urine Positive ng/ml (<300); Methadone Screen,Urine Negative ng/ml (<300)
[2023-11-08 16:22] LABS: Opiate Screen,Urine Positive ng/ml (<300)
[2023-11-08 16:23] LABS: Phencyclidine Screen,Urine Negative ng/ml (<25)
--- NOTE | 2023-11-08 16:33 | PC.NURSE ---
report ca;;ed to Tory Carrera
[2023-11-08] MEDS: LACTATED RINGERS 1000ML 1,000 ML 150 ML IV ×2 (18:06→23:17)
[2023-11-08] MEDS: PROCHLORPERAZINE 10MG/2ML VIAL 10 MG IV (18:42)
--- NOTE | 2023-11-08 19:21 | PC.NURSE ---
pt states that he stopped taking all of his meds approx 6 months ago after a disagreement with his then PCP r/t her decreasing the dose of his Xanax
[2023-11-08] MEDS: LORazepam 2MG/ML VIAL 2 MG IV (19:37)
[2023-11-08] MEDS: PANTOPRAZOLE 40MG VIAL 40 MG IV (20:47)
[2023-11-08] MEDS: NICOTINE 21MG/24HR PATCH 21 MG TD (20:47)
[2023-11-08] MEDS: MORPHINE 2MG/ML SYRINGE 4 MG IV (20:47)
[2023-11-09] VITALS: BP 122/66; PULSE 79; RESP 15; TEMP 36.9; O2SAT 96
[2023-11-09] MEDS: MORPHINE 4MG/ML SYRINGE 4 MG IV (02:14)
[2023-11-09 04:00] VITALS: BP 142/76; PULSE 86; RESP 16; TEMP 36.8; O2SAT 94; BMI 21.6
[2023-11-09] MEDS: LORazepam 2MG/ML VIAL 2 MG IV ×3 (05:23→15:12)
--- NOTE | 2023-11-09 06:33 | PC.NURSE ---
Patient requesting morphine, ativan , compazine frequently. Reports coming off heroin (snorts). Patient is disabled. Pain reported is headache and leg pain. No epigastric or stomach pain reported. Remains NPO for pancreatitis.
[2023-11-09] MEDS: MORPHINE 2MG/ML SYRINGE 4 MG IV ×3 (07:38→16:17)
[2023-11-09 08:00] VITALS: BP 133/75; PULSE 91; RESP 16; TEMP 36.7; O2SAT 95
[2023-11-09 08:00] LABS: Basophils # 0.1 K/mm3 (0-0.2); Basophils % 0.3 % (0.1-2.0); Eosinophils # 0.1 K/mm3 (0.0-0.4); Eosinophils % 0.7 % (0.1-12.0); Hematocrit 40.5 % (42.0-52.0); Lymphocytes # 1.6 K/mm3 (0.7-4.5); Lymphocytes % 9.3 % (10-50); Mean Corpuscular HGB Conc 34.8 g/dL (31.8-35.4); Mean Corpuscular Hemoglobin 29.8 pg (27.0-31.2); Mean Corpuscular Volume 85.7 fl (80-94); Mean Platelet Volume 7.4 fl (7.4-10.4); Monocytes # 0.7 K/mm3 (0.1-1.0); Monocytes % 4.3 % (1.7-9.3); Neutrophils # 14.8 K/mm3 (1.8-7.8); Neutrophils % 85.4 % (37.0-80.0); Platelet Count 529 K/mm3 (142-424); Red Blood Count 4.73 M/mm3 (4.60-6.20); Red Cell Distribution Width 13.3 % (11.5-17.5); White Blood Count 17.4 K/mm3 (4.8-10.8)
[2023-11-09 08:07] LABS: MANUAL DIFFERENTIAL MANUAL DIFFERENTIAL (MANUAL DIFF)
[2023-11-09 08:16] LABS: Anion Gap 9.5 mEq/L (5-15); Blood Urea Nitrogen 14 mg/dl (9-20); Calcium 9.4 mg/dl (8.4-10.2); Carbon Dioxide 25 mmol/L (22.0-30.0); Chloride 108 mmol/L (98-107); Creatinine Clearance Estimated 82 mL/min (50-200); Estimated Glomerular Filt Rate 88 ml/min (>60); GFR (African American) 107 ML/MIN (>60); Glucose 105 mg/dl (74-100); Magnesium 1.8 mg/dl (1.6-2.3); Phosphorous 2.3 mg/dl (2.5-4.5); Potassium 3.5 mmoL/L (3.5-5.1); Sodium 139 mmol/L (136-145)
[2023-11-09] MEDS: ENOXAPARIN 40MG/0.4ML SYRINGE 40 MG SQ (08:23)
[2023-11-09] MEDS: DOCUSATE SODIUM 100 MG CAPSULE PO (08:23)
[2023-11-09 09:36] LABS: Lipase 207 U/L (23-300)
[2023-11-09 10:11] LABS: Lymphocytes % 9 % (10-50); Monocytes % 2 % (2-9); Neutrophils % 88 % (42-76); Platelet Estimate Slight Increase; Total Cells Counted 100
[2023-11-09 10:12] LABS: RBC Morphology Normal
[2023-11-09 11:48] LABS: C-Reactive Protein 3.5 mg/L (0-4)
[2023-11-09 12:02] LABS: Procalcitonin 0.035 ng/mL (0.0-2.0)
[2023-11-09] MEDS: LACTATED RINGERS 1000ML 1,000 ML 150 ML IV (12:13)
[2023-11-09 13:17] LABS: Hemoglobin 14.1 g/dL (14.1-18.0)
--- NOTE | 2023-11-09 16:22 | EXP.DC.SUM ---
General Admission date:: 11/08/23 Discharge date: 11/09/23 HPI HPI HPI: Patient with past medical history of hypertension, hyperlipidemia, anxiety, polysubstance abuse, history of cholecystectomy,presents complaining of abdominal pain starting at 4 AM. Patient describes abdominal pain as 10 out of 10, diffuse, constant, relieved by pain medicines in emergency room. Patient admits to using street drugs, and states last use was 3 days ago. Admits to hot/cold spells, sweating, nausea, vomiting, diarrhea since [address] abdomen/pelvis shows no pseudocyst or phlegmon. Lipase over thousand at time of admission. Denies alcohol use. Hospital Course Hospital Course Hospital Course: Patient admitted to hospital for abdominal pain, and subsequently diagnosed with pancreatitis. Patient made n.p.o. overnight, with diet advanced to full liquids. By 1600 on 11/09/23, patient ready to go home. Patient stated that abdominal pain much improved, and patient able to tolerate full liquid diet without incident. Patient subsequently discharged home on bland diet, and told to advance diet slowly as tolerated. Patient also advised to follow-up with primary care physician within 7 days of hospital discharge for further pancreatitis management. While patient denies drinking, patient advised to stop drinking to prevent further bouts of pancreatitis. Patient also discharged with instructions to follow-up with newspaper illustrator Dr. Aubrey Jerry, for further pancreatitis management. Patient status post cholecystectomy in remote past. Exam Data for Last 24 hours Vital signs and Labs for Last 24 Hours: Temp Pulse Resp BP Pulse Ox O2 Del Method 98.1 F 91 H 16 133/75 95 Room Air 11/09/23 08:00 11/09/23 08:00 11/09/23 08:00 11/09/23 08:00 11/09/23 08:00 11/09/23 15:00 Laboratory Results - last 24 hr 11/08/23 15:55: Urine Opiates Screen Positive H, Urine Methadone Screen Negative, Ur Barbituates Screen Negative, Ur Phencyclidine Scrn Negative, Ur Amphetamines Screen Negative, U Benzodiazepines Scrn Positive H, Urine Cocaine Screen Positive H, U Marijuana (THC) Screen Positive H 11/09/23 07:46: WBC 17.4 H, RBC 4.73, Hgb 14.1 D, Hct 40.5 L, MCV 85.7, MCH 29.8, MCHC 34.8, RDW 13.3, Plt Count 529 H, MPV 7.4, Neut % (Auto) 85.4 H, Lymph % (Auto) 9.3 L, [place] % (Auto) 4.3, Eos % (Auto) 0.7, Baso % (Auto) 0.3, Neut # (Auto) 14.8 H, Lymph # (Auto) 1.6, [place] # (Auto) 0.7, Eos # (Auto) 0.1, Baso # (Auto) 0.1, Total Counted 100, Neutrophils % (Manual) 88 H, Lymphocytes % (Manual) 9 L, Atypical Lymphs % 1.0, Monocytes % (Manual) 2, Platelet Estimate Slight increase, RBC Morphology Normal, Sodium 139, Potassium 3.5, Chloride 108 H, Carbon Dioxide 25, Anion Gap 9.5, BUN 14, Creatinine 0.90, Estimated Creat Clear 82, Estimated GFR 88, Est GFR ( Amer) 107, Glucose 105 H, Calcium 9.4, Phosphorus 2.3 L, Magnesium 1.8, C-Reactive Protein 3.5, Lipase 207, Procalcitonin 0.035 I & O for Last 24 hours: Intake & Output 11/06/23 11/07/23 11/08/23 11/09/23 23:59 23:59 23:59 23:59 Intake Total 855 / 855 1121 / 1121 Output Total 0 / 0 400 / 400 Balance 855 / 855 721 / 721 Weight 58.967 kg 60.967 kg Results Data Completed and Pending Labs on day of discharge: Labs from last 24 hours 11/09/23 11/08/23 07:46 15:55 WBC 17.4 H RBC 4.73 Hgb 14.1 D Hct 40.5 L MCV 85.7 MCH 29.8 MCHC 34.8 RDW 13.3 Plt Count 529 H MPV 7.4 Neut % (Auto) 85.4 H Lymph % (Auto) 9.3 L [place] % (Auto) 4.3 Eos % (Auto) 0.7 Baso % (Auto) 0.3 Neut # (Auto) 14.8 H Lymph # (Auto) 1.6 [place] # (Auto) 0.7 Eos # (Auto) 0.1 Baso # (Auto) 0.1 Total Counted 100 Neutrophils % (Manual) 88 H Lymphocytes % (Manual) 9 L Atypical Lymphs % 1.0 Monocytes % (Manual) 2 Platelet Estimate Slight increase RBC Morphology Normal Sodium 139 Potassium 3.5 Chloride 108 H Carbon Dioxide 25 Anion Gap 9.5 BUN 14 Creatinine 0.90 Estimated Creat Clear 82 Estimated GFR 88 Est GFR ( Amer) 107 Glucose 105 H Calcium 9.4 Phosphorus 2.3 L Magnesium 1.8 C-Reactive Protein 3.5 Lipase 207 Procalcitonin 0.035 Urine Opiates Screen Positive H Urine Methadone Screen Negative Ur Barbituates Screen Negative Ur Phencyclidine Scrn Negative Ur Amphetamines Screen Negative U Benzodiazepines Scrn Positive H Urine Cocaine Screen Positive H U Marijuana (THC) Screen Positive H Imaging and Cardiology TESTING: Status: image reviewed by me Additional comments: Ordering Physician: Haresh Chang MD Date of Service: 11/08/23 Procedure(s): CT abdomen pelvis wo con Accession Number(s): [id number] cc: Haresh Chang MD; aRmses Weeks MD; Iain Tristan DO~ FINAL REPORT CLINICAL HISTORY: EPIGASTRIC TTP RADIATING TO RLQ, LEUKOCYTOSIS COMPARISON: 09/19/2022 FINDINGS: Axial CT images of the abdomen and pelvis were obtained without intravenous contrast. Coronal and sagittal reformatted images were also obtained.This study was performed with techniques to keep radiation doses as low as reasonably achievable (ALARA). Individualized dose reduction techniques using automated exposure control or adjustment of mA and/or kV according to the patient's size were employed. Abdomen:The lung bases are clear. Mild gynecomastia is present. There is no evidence of renal stone or hydronephrosis. Mild fatty infiltration of the liver is present. The gallbladder has been surgically resected. The liver, spleen and pancreas otherwise have an unremarkable, unenhanced appearance. No mass or adenopathy is seen. No inflammatory process is identified. Pelvis: Images of the pelvis reveal no evidence of ureteral dilation or ureteral stone.No mass or abnormal fluid collection is identified. There is a small umbilical hernia containing fat. Mild vascular calcifications are noted. There are multiple nonspecific fluid-filled bowel loops, worrisome for enteritis. There is a chronic L1 compression fracture and a left L5 pars defect, also seen on the prior CT. IMPRESSION: Multiple nonspecific fluid-filled bowel loops, worrisome for enteritis. Ordering Physician: Haresh Chang MD Date of Service: 11/08/23 Procedure(s): XR chest portable Accession Number(s): [id number] cc: Ramses Weeks MD; Iain Tristan DO~ FINAL REPORT CLINICAL HISTORY: sob COMPARISON: 09/19/2022 FINDINGS: SINGLE-VIEW CHEST The heart size is normal. The mediastinum is normal. The lungs are clear. There is no pneumothorax. IMPRESSION: No acute cardiopulmonary process. DS: Diagnosis Discharge Diagnosis (1) Polysubstance abuse: Status: Acute Code(s): F19.10 - Other psychoactive substance abuse, uncomplicated (2) Status post cholecystectomy: Status: Chronic Code(s): Z90.49 - Acquired absence of other specified parts of digestive tract (3) Hyperlipidemia: Status: Chronic Code(s): E78.5 - Hyperlipidemia, unspecified (4) HTN (hypertension): Status: Chronic Code(s): I10 - Essential (primary) hypertension (5) Pancreatitis: Status: Acute Code(s): K85.90 - Acute pancreatitis without necrosis or infection, unspecified Meds Home Medications and Allergies Home Medications Medication Instructions Recorded Confirmed Type oxycodone 5 mg tablet 5 mg PO Q6H PRN pain #12 tabs 11/09/23 Rx New Prescriptions to Start Prescriptions: oxycodone [place] Allergies Allergy/AdvReac Type Severity Reaction Status Date / Time Penicillins Allergy Verified 11/08/23 17:24 Discharge Plan Disposition Patient Disposition: Home, Self-Care Condition: Fair Follow up Plan Follow up with: Christopher Ellington APRN [Nurse Practitioner] - 11/16/23 11:00 am Aubrey Jerry [Referring] - 1 month (Please follow-up with gastroenterology within 4 weeks of hospital disposition for further pancreatitis management) Prescriptions/Medication Reconciliation: New oxycodone 5 mg tablet 5 mg PO Q6H PRN (Reason: pain) Qty: 12 0RF Problem Reconciliation Problems Reviewed?: Yes Patient Discharge Instructions ACTIVITY: Continue current activity DIET: advance to your usual diet Patient Instructions: Pancreatitis (Alternative Therapy) Print Language: Amharic Providers Primary Care Provider: Iain Tristan Admit Provider: Mir Lopez Attending Provider: Mir Lopez
--- NOTE | 2023-11-13 13:09 | CARE MANAGER ---
Patient unhappy because his prescription for Oxycodone was cancelled due to Suboxone usage. He states he knows what he needs to take to help and that is what he needs. He went to PCP today and didn't get the answer he wanted. He wants Xanax as well. We discussed picking up the medication that Christopher Ellington prescribed and trying as well as making an appointment with Raisa Yousif. Patient is resistant to all the above. He won't come to ER due to not wanting to be poked and proded and nobody will give him a second chance. Patient very resistant to everything.
== END 2023-11-09 16:40 | disposition home or self-care (01) ==
LOC: ER 11:13 → 2ND 11-09 05:13
PROVIDERS: Admitting Provider Internal Medicine; Emergency Provider Emergency Medicine; PCP Internal Medicine; Visit Provider Internal Medicine
DX: K85.90 Acute pancreatitis without necrosis or infection, unspecified (principal); I10 Essential (primary) hypertension; E78.5 Hyperlipidemia, unspecified; Z79.891 Long term (current) use of opiate analgesic
CPT/HCPCS: 71045; 74176; 80048; 80053; 80307; 80320; 81001; 83690; 83735; 84100; 84145; 84484; 85007; 85025; 85027; 85610; 86140; 87040; 93005; 99285; G0378; G0480; J1650; J1885; J2060; J2270; J2405; J7120

== ENCOUNTER 2023-12-19 09:14 | Emergency (ER) | payer OTHER, SELFPAY ==
[2023-12-19] VITALS (21 sets, daily range): BP systolic 116–142; BP diastolic 46–75; PULSE 54–91; RESP 13–28; TEMP 36.4–36.6; O2SAT 96–100; BMI 21.6
--- NOTE | 2023-12-19 09:15 | ECG_ITS ---
APPROVED REPORT Exam: Resting ECG HR:56 bpm ECG Measurements Heart Rate 56 AXES [place] 134 P 71 QRSd 98 QRS 45 QT 433 T 60 QTc 425 Conclusion SINUS BRADYCARDIA WITH OCCASIONAL SUPRAVENTRICULAR PREMATURE COMPLEXES BORDERLINE ECG Electronically signed by : BASILIO GREENE, 12/21/2023 23:28:02
--- NOTE | 2023-12-19 09:22 | [facility].EDGENADL ---
Discharge Plan Disposition Patient Disposition: Xfer Short-Term Hosp Condition: Good Chief Complaint: Chest Pain Prescriptions Prescriptions: No Action Vraylar 1.5 mg capsule 1.5 mg PO DAILY Qty: 30 2RF lisinopril 40 mg tablet 40 mg PO DAILY Patient Comments: TAKE ONE (1) TAB BY MOUTH EVERY DAY - FOR BLOOD PRESSURE buprenorphine-naloxone 8-2 mg tablet, sublingual 2 tab SUBLINGUAL DAILY hydroxyzine pamoate [Vistaril] 25 mg capsule 25 mg PO TIDP PRN (Reason: itching) Referrals Follow up/Referrals: Provider,Referral, [Primary Care Provider] - See instructions Clinical Impressions Clinical Impression: Superior mesenteric artery syndrome, Acute pancreatitis Stand Alone Forms Stand Alone Forms: Transfer Record - ED Print Language Print Language: Peruvian Discharge ED Provider: German Quiros General Adult HPI <Devonte Greene MD - Last Filed: 12/19/23 16:19> General Chief complaint: Chest Pain Stated complaint: Chest Pain Time Seen by Provider: 12/19/23 09:22 History of Present Illness HPI narrative: The patient presents with a chief complaint of severe abdominal pain, which he first noticed last night. The patient is unable to recall the specific circumstances surrounding the onset of the pain. He describes the pain as 'hurting bad' and localized to the stomach, particularly in the lower area. He reports having experienced a similar episode of pain last month, for which he sought medical attention. In addition to the abdominal pain, the patient reports tightness in the chest area, painful urination, nausea, and vomiting. He denies experiencing diarrhea, hematemesis, or recent bowel movements. The patient also mentions coughing, but does not provide further details. He denies any current chest pain and is unable to recall the last time he experienced chest pain. The patient appears to be in significant distress, repeatedly stating that he is 'hurting' and 'sick.' He does not report any factors that make the pain better or worse. The patient also mentions experiencing fevers and chills when asked about additional symptoms. Please note that above description of symptoms, in this electronic medical record under categorization of recalled from ER triage doctor by RN are reflective of an initial nursing assessment, however, is not reflective of my full history and physical exam that was personally taken and clarified. Consequentially, this preceding description of symptoms, which may include the patient's categorized chief complaint in the EMR, do not reflect my personal clinical impression, and the ultimate description of history of present illness and patient stated complaints should be deferred to this section of the note. Unless stated otherwise or congruent with this section of the note, additional signs, symptoms, or incongruence should be interpreted as inaccurate with my clinical impression. Related Data Home Medications ?Medication ?Instructions ?Recorded ?Confirmed buprenorphine 8 mg-naloxone 2 mg 2 tab sublingual DAILY 12/19/23 12/19/23 sublingual tablet hydroxyzine pamoate 25 mg capsule 25 mg PO TIDP PRN itching 12/19/23 12/19/23 (Vistaril) lisinopril 40 mg tablet 40 mg PO DAILY 12/19/23 12/19/23 Previous Rx's ?Medication ?Instructions ?Recorded cariprazine 1.5 mg capsule 1.5 mg PO DAILY #30 caps 11/13/23 (Vraylar) Allergies Allergy/AdvReac Type Severity Reaction Status Date / Time Penicillins Allergy Verified 11/13/23 09:10 [facility] <Devonte Greene MD - Last Filed: 12/19/23 16:19> [facility] Disclaimer: The information contained in this section may have been updated after the patient was seen, as this information can be updated by other users. Medical History FH: cholecystectomy Drug use HTN (hypertension) Anxiety Other laborer [employer] (current) drug therapy Hyperlipidemia (~05/2017) Social History Smoking Status: Current every day smoker tobacco type: cigarettes packs per day: 20 alcohol intake: never substance use type: former substance user and crack/cocaine current occupational status: disabled Travel in the last 8 weeks: None household members: family housing: house <Devonte Greene MD - Last Filed: 12/19/23 16:19> ROS Obtained: Yes other As per HPI Physical Exam <Devonte Greene MD - Last Filed: 12/19/23 16:19> General General appearance: alert and in distress Head Head exam: atraumatic and normocephalic Eye Eye exam: Present normal appearance Neck Neck exam: Present normal inspection Chest Chest inspection: Present normal inspection and symmetric chest wall rise Respiratory Respiratory exam: Present normal lung sounds bilaterally; Absent respiratory distress Cardiovascular Cardiovascular exam: Present regular rate and normal rhythm Abdominal Exam Abdominal exam: Present soft, tenderness and guarding Abdominal tenderness: Present RUQ and epigastrium Neurological Exam Neurological exam: Present alert and oriented X3 Psychiatric Psychiatric exam: Present normal affect and normal mood Skin Skin exam: Present warm and dry Medical Decision Making <Devonte Greene MD - Last Filed: 12/19/23 16:19> Medical Records Medical records reviewed: Yes I reviewed the patient's medical records. Wojciech Inquiry Pt receiving controlled substance: No Vital Signs: 12/19/23 09:15 12/19/23 09:30 12/19/23 09:45 Temperature 97.6 F Temperature Source Oral Pulse Rate 60 54 L Pulse Rate [Left Radial] 55 L Respiratory Rate 16 18 18 Blood Pressure 142/61 H Blood Pressure [Right Arm] 129/63 Blood Pressure Mean Blood Pressure Mean [Right Arm] 85 02 Sat by Pulse Oximetry 100 100 100 Oxygen Delivery Method Room Air Room Air 12/19/23 10:00 12/19/23 10:30 12/19/23 11:00 Temperature Temperature Source Pulse Rate Pulse Rate [Left Radial] Respiratory Rate 21 20 20 Blood Pressure 123/59 L 126/61 116/59 L Blood Pressure [Right Arm] Blood Pressure Mean 81 Blood Pressure Mean [Right Arm] 02 Sat by Pulse Oximetry Oxygen Delivery Method Room Air 12/19/23 11:30 12/19/23 12:00 12/19/23 12:30 Temperature Temperature Source Pulse Rate Pulse Rate [Left Radial] Respiratory Rate 20 13 18 Blood Pressure 133/68 130/58 L 128/61 Blood Pressure [Right Arm] Blood Pressure Mean 77 73 Blood Pressure Mean [Right Arm] 02 Sat by Pulse Oximetry Oxygen Delivery Method 12/19/23 13:00 12/19/23 13:30 12/19/23 16:00 Temperature Temperature Source Pulse Rate Pulse Rate [Left Radial] Respiratory Rate 28 H 22 27 H Blood Pressure 120/57 L 129/64 131/62 Blood Pressure [Right Arm] Blood Pressure Mean Blood Pressure Mean [Right Arm] 02 Sat by Pulse Oximetry Oxygen Delivery Method 12/19/23 16:30 12/19/23 17:00 12/19/23 17:30 Temperature Temperature Source Pulse Rate Pulse Rate [Left Radial] Respiratory Rate 26 H 23 17 Blood Pressure 118/57 L 126/56 L 122/58 L Blood Pressure [Right Arm] Blood Pressure Mean Blood Pressure Mean [Right Arm] 02 Sat by Pulse Oximetry Oxygen Delivery Method 12/19/23 18:00 12/19/23 18:30 12/19/23 19:00 Temperature Temperature Source Pulse Rate 91 H 69 Pulse Rate [Left Radial] Respiratory Rate 20 17 Blood Pressure 131/68 127/58 L 125/64 Blood Pressure [Right Arm] Blood Pressure Mean 77 75 Blood Pressure Mean [Right Arm] 02 Sat by Pulse Oximetry 96 99 Oxygen Delivery Method Room Air Lab Data Lab Results 12/19/23 09:25: WBC 19.2 H, RBC 5.68, Hgb 16.2, Hct 49.5, MCV 87.2, MCH 28.5, MCHC 32.7, RDW 13.3, Plt Count 566 H, MPV 7.8, Neut % (Auto) 90.2 H, Lymph % (Auto) 6.5 L, [place] % (Auto) 2.7, Eos % (Auto) 0.3, Baso % (Auto) 0.2, Neut # (Auto) 17.3 H, Lymph # (Auto) 1.3, [place] # (Auto) 0.5, Eos # (Auto) 0.1, Baso # (Auto) 0.1, Total Counted 100, Neutrophils % (Manual) 90 H, Lymphocytes % (Manual) 5 L, Monocytes % (Manual) 5, Platelet Estimate Slight increase, RBC Morphology Normal, Sodium 138, Potassium 3.8, Chloride 102, Carbon Dioxide 25, Anion Gap 14.8, BUN 15, Creatinine 1.10, Estimated Creat Clear 69, Estimated GFR 70, Est GFR ( Amer) 85, Glucose 123 H, Calcium 10.0, Magnesium 1.7, Total Bilirubin 1.2, AST 31, ALT 28, Alkaline Phosphatase 80, Troponin I < 0.01, Total Protein 8.4 H, Albumin 5.1 H, Globulin 3.3 H, Albumin/Globulin Ratio 1.5, Lipase 933 H 12/19/23 11:27: Urine Color Yellow, Urine Appearance Clear, Urine pH 8.5, Ur Specific [place] 1.015, Urine Protein Trace, Urine Glucose (UA) Negative, Urine Ketones 3+, Urine Blood Negative, Urine Nitrate Negative, Urine Bilirubin 1+ A, Urine Urobilinogen 0.2, Ur Leukocyte Esterase Negative, Urine RBC None, Urine WBC Occasional, Ur Squamous Epith Cells Occasional, Urine Bacteria Trace, Urine Opiates Screen Positive H, Urine Methadone Screen Negative, Ur Barbituates Screen Negative, Ur Phencyclidine Scrn Negative, Ur Amphetamines Screen Negative, U Benzodiazepines Scrn Positive H, Urine Cocaine Screen Negative, U Marijuana (THC) Screen Positive H 12/19/23 11:45: VBG pH 7.56 H, VBG pCO2 20.1 L, VBG pO2 164.8 H, VBG HCO3 17.5 L, VBG Total CO2 18.1 L, VBG O2 Saturation 99.3 H, VBG Base Excess -4.7 L, VBG Lactic Acid 2.7 H 12/19/23 13:21: Troponin I < 0.01 12/19/23 16:25: Lactate 0.9 12/19/23 09:25 12/19/23 09:25 Orders (Tests/Meds): ED MEDICATIONS Generic Name Dose Route Start Last Admin Trade Name Freeddi PRN Reason Stop Dose Admin Sodium Chloride 10 ml 12/19/23 09:33 Sodium Chloride 0.9% 10ml Flush Syringe IV 01/18/24 09:32 NEEDED PRN Maintain IV Site Sodium Chloride 10 ml 12/19/23 13:20 Sodium Chloride 0.9% 10ml Vial IV 01/18/24 13:19 NEEDED PRN to Dilute Lorazepam inj Discontinued Medications Generic Name Dose Route Start Last Admin Trade Name Freeddi PRN Reason Stop Dose Admin Hydromorphone HCl 0.5 mg 12/19/23 09:45 12/19/23 09:50 Hydromorphone 2mg/Ml Syringe IV 12/19/23 09:46 0.5 mg ONCE ONE Administration Hydromorphone HCl 0.5 mg 12/19/23 13:15 12/19/23 13:22 Hydromorphone 2mg/Ml Syringe IV 12/19/23 13:16 0.5 mg ONCE ONE Administration Hydromorphone HCl 0.5 mg 12/19/23 15:30 12/19/23 15:41 Hydromorphone 2mg/Ml Syringe IV 12/19/23 15:31 0.5 mg ONCE ONE Administration Hydromorphone HCl 1 mg 12/19/23 18:16 12/19/23 18:27 Hydromorphone 2mg/Ml Syringe IV 12/19/23 18:17 1 mg ONCE ONE Administration Lactated Ringer's 1,000 mls @ 999 mls/hr 12/19/23 09:40 12/19/23 09:50 Lactated Ringer's 1000 Ml Bag IV 12/19/23 10:40 999 mls/hr .Q1H1M ONE Administration Iopamidol 80 ml 12/19/23 13:35 12/19/23 13:36 Iopamidol-370 (76%);100ml Bottle IV 12/19/23 13:36 80 ml ONCE ONE Administration Lorazepam 1 mg 12/19/23 13:20 12/19/23 13:24 Lorazepam 2mg/Ml Vial IV 12/19/23 13:21 1 mg ONCE ONE Administration Morphine Sulfate 4 mg 12/19/23 11:35 12/19/23 11:39 Morphine 4mg/Ml Syringe IV 12/19/23 11:36 4 mg ONCE ONE Administration Ondansetron HCl 4 mg 12/19/23 09:40 12/19/23 09:50 Ondansetron 4mg/2ml Vial IV 12/19/23 09:41 4 mg ONCE ONE Administration Sodium Chloride 50 ml 12/19/23 13:35 12/19/23 13:35 0.9 % Sodium Chloride 50 Ml Vial IV 12/19/23 13:36 50 ml ONCE ONE Administration Sodium Chloride 10 ml 12/19/23 13:35 12/19/23 13:35 Sodium Chloride 0.9% 10ml Syr (Rad Only) IV 12/19/23 13:36 10 ml ONCE ONE Administration ORDERS Category Date Time Status CT abdomen pelvis wo con Stat Cat Scan 12/19/23 09:[address] angio abdomen pelvis Stat Cat Scan 12/19/23 13:[address] chest wo con Stat Cat Scan 12/19/23 09:41 Completed CBC w/Auto Diff [Complete Blood Count Auto Diff] Stat Lab 12/19/23 09:25 Completed CMP [Comprehensive Metabolic Panel] Stat Lab 12/19/23 09:25 Completed Drug Screen,Urine Stat Lab 12/19/23 11:27 Completed Lactic Acid Follow Up (RFLX 1) Stat Lab 12/19/23 16:25 Completed Lipase Stat Lab 08/21/24 09:25 Completed MAG [Magnesium] Stat Lab 12/19/23 09:25 Completed Troponin I Q3H Lab 12/19/23 09:25 Completed Troponin I Q3H Lab 12/19/23 13:21 Completed Urinalysis and Microscopic Stat Lab 12/19/23 11:27 Completed VBG [Venous Blood Gas] Stat RT 12/19/23 11:45 Completed Medical Decision Narrative: Patient with history and exam per above presenting for evaluation of abdominal pain Diagnoses considered include pancreatitis, PUD, mesenteric ischemia, ACS, PE, among others ED workup and treatment included: ED MEDICATIONS Generic Name Dose Route Start Last Admin Trade Name Freq PRN Reason Stop Dose Admin Sodium Chloride 10 ml 12/19/23 09:33 Sodium Chloride 0.9% 10ml Flush Syringe IV 01/18/24 09:32 NEEDED PRN Maintain IV Site Sodium Chloride 10 ml 12/19/23 13:20 Sodium Chloride 0.9% 10ml Vial IV 01/18/24 13:19 NEEDED PRN to Dilute Lorazepam inj Discontinued Medications Generic Name Dose Route Start Last Admin Trade Name Freq PRN Reason Stop Dose Admin Hydromorphone HCl 0.5 mg 12/19/23 09:45 12/19/23 09:50 Hydromorphone 2mg/Ml Syringe IV 12/19/23 09:46 0.5 mg ONCE ONE Administration Hydromorphone HCl 0.5 mg 12/19/23 13:15 12/19/23 13:22 Hydromorphone 2mg/Ml Syringe IV 12/19/23 13:16 0.5 mg ONCE ONE Administration Hydromorphone HCl 0.5 mg 12/19/23 15:30 12/19/23 15:41 Hydromorphone 2mg/Ml Syringe IV 12/19/23 15:31 0.5 mg ONCE ONE Administration Lactated Ringer's 1,000 mls @ 999 mls/hr 12/19/23 09:40 12/19/23 09:50 Lactated Ringer's 1000 Ml Bag IV 12/19/23 10:40 999 mls/hr .Q1H1M ONE Administration Iopamidol 80 ml 12/19/23 13:35 12/19/23 13:36 Iopamidol-370 (76%);100ml Bottle IV 12/19/23 13:36 80 ml ONCE ONE Administration Lorazepam 1 mg 12/19/23 13:20 12/19/23 13:24 Lorazepam 2mg/Ml Vial IV 12/19/23 13:21 1 mg ONCE ONE Administration Morphine Sulfate 4 mg 12/19/23 11:35 12/19/23 11:39 Morphine 4mg/Ml Syringe IV 12/19/23 11:36 4 mg ONCE ONE Administration Ondansetron HCl 4 mg 12/19/23 09:40 12/19/23 09:50 Ondansetron 4mg/2ml Vial IV 12/19/23 09:41 4 mg ONCE ONE Administration Sodium Chloride 50 ml 12/19/23 13:35 12/19/23 13:35 0.9 % Sodium Chloride 50 Ml Vial IV 12/19/23 13:36 50 ml ONCE ONE Administration Sodium Chloride 10 ml 12/19/23 13:35 12/19/23 13:35 Sodium Chloride 0.9% 10ml Syr (Rad Only) IV 12/19/23 13:36 10 ml ONCE ONE Administration ORDERS Category Date Time Status CT abdomen pelvis wo con Stat Cat Scan 12/19/23 09:[address] angio abdomen pelvis Stat Cat Scan 12/19/23 13:[address] chest wo con Stat Cat Scan 12/19/23 09:41 Completed CBC w/Auto Diff [Complete Blood Count Auto Diff] Stat Lab 12/19/23 09:25 Completed CMP [Comprehensive Metabolic Panel] Stat Lab 12/19/23 09:25 Completed Drug Screen,Urine Stat Lab 12/19/23 11:27 Completed Lactic Acid Follow Up (RFLX 1) Stat Lab 12/19/23 16:03 Ordered Lipase Stat Lab 12/19/23 09:25 Completed MAG [Magnesium] Stat Lab 12/19/23 09:25 Completed Troponin I Q3H Lab 12/19/23 09:25 Completed Troponin I Q3H Lab 12/19/23 13:21 Completed Urinalysis and Microscopic Stat Lab 12/19/23 11:27 Completed VBG [Venous Blood Gas] Stat RT 12/19/23 11:45 Completed Labs were independently interpreted by me, significant for chronic leukocytosis, however elevated in comparison to prior, white blood cell count 19, lactate 2.7, lipase 933 Imaging was independently visualized and interpreted by me, 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 Patient initially refused angiography with no explanation of declination, denies any history of contrast allergy or adverse reactions. I discussed with him my concern that he may have acute surgical pathology for which angiography would help distinguish cause and further management. After several discussions by myself and by nursing staff, he acquiesces to angiography. CTA revealing redemonstrated concern for SMA syndrome. Please refer to radiology report for full details. 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 He will benefit from transfer to outside facility with GI and vascular surgery available for further management and recommendations. <German Quiros MD - Last Filed: 12/19/23 19:39> Vital Signs: 12/19/23 09:15 12/19/23 09:30 12/19/23 09:45 Temperature 97.6 F Temperature Source Oral Pulse Rate 60 54 L Pulse Rate [Left Radial] 55 L Respiratory Rate 16 18 18 Blood Pressure 142/61 H Blood Pressure [Right Arm] 129/63 Blood Pressure Mean Blood Pressure Mean [Right Arm] 85 02 Sat by Pulse Oximetry 100 100 100 Oxygen Delivery Method Room Air Room Air 12/19/23 10:00 12/19/23 10:30 12/19/23 11:00 Temperature Temperature Source Pulse Rate Pulse Rate [Left Radial] Respiratory Rate 21 20 20 Blood Pressure 123/59 L 126/61 116/59 L Blood Pressure [Right Arm] Blood Pressure Mean 81 Blood Pressure Mean [Right Arm] 02 Sat by Pulse Oximetry Oxygen Delivery Method Room Air 12/19/23 11:30 12/19/23 12:00 12/19/23 12:30 Temperature Temperature Source Pulse Rate Pulse Rate [Left Radial] Respiratory Rate 20 13 18 Blood Pressure 133/68 130/58 L 128/61 Blood Pressure [Right Arm] Blood Pressure Mean 77 73 Blood Pressure Mean [Right Arm] 02 Sat by Pulse Oximetry Oxygen Delivery Method 12/19/23 13:00 12/19/23 13:30 12/19/23 16:00 Temperature Temperature Source Pulse Rate Pulse Rate [Left Radial] Respiratory Rate 28 H 22 27 H Blood Pressure 120/57 L 129/64 131/62 Blood Pressure [Right Arm] Blood Pressure Mean Blood Pressure Mean [Right Arm] 02 Sat by Pulse Oximetry Oxygen Delivery Method 12/19/23 16:30 12/19/23 17:00 12/19/23 17:30 Temperature Temperature Source Pulse Rate Pulse Rate [Left Radial] Respiratory Rate 26 H 23 17 Blood Pressure 118/57 L 126/56 L 122/58 L Blood Pressure [Right Arm] Blood Pressure Mean Blood Pressure Mean [Right Arm] 02 Sat by Pulse Oximetry Oxygen Delivery Method 12/19/23 18:00 12/19/23 18:30 12/19/23 19:00 Temperature Temperature Source Pulse Rate 91 H 69 Pulse Rate [Left Radial] Respiratory Rate 20 17 Blood Pressure 131/68 127/58 L 125/64 Blood Pressure [Right Arm] Blood Pressure Mean 77 75 Blood Pressure Mean [Right Arm] 02 Sat by Pulse Oximetry 96 99 Oxygen Delivery Method Room Air Lab Data Lab Results 12/19/23 09:25: WBC 19.2 H, RBC 5.68, Hgb 16.2, Hct 49.5, MCV 87.2, MCH 28.5, MCHC 32.7, RDW 13.3, Plt Count 566 H, MPV 7.8, Neut % (Auto) 90.2 H, Lymph % (Auto) 6.5 L, [place] % (Auto) 2.7, Eos % (Auto) 0.3, Baso % (Auto) 0.2, Neut # (Auto) 17.3 H, Lymph # (Auto) 1.3, [place] # (Auto) 0.5, Eos # (Auto) 0.1, Baso # (Auto) 0.1, Total Counted 100, Neutrophils % (Manual) 90 H, Lymphocytes % (Manual) 5 L, Monocytes % (Manual) 5, Platelet Estimate Slight increase, RBC Morphology Normal, Sodium 138, Potassium 3.8, Chloride 102, Carbon Dioxide 25, Anion Gap 14.8, BUN 15, Creatinine 1.10, Estimated Creat Clear 69, Estimated GFR 70, Est GFR ( Amer) 85, Glucose 123 H, Calcium 10.0, Magnesium 1.7, Total Bilirubin 1.2, AST 31, ALT 28, Alkaline Phosphatase 80, Troponin I < 0.01, Total Protein 8.4 H, Albumin 5.1 H, Globulin 3.3 H, Albumin/Globulin Ratio 1.5, Lipase 933 H 12/19/23 11:27: Urine Color Yellow, Urine Appearance Clear, Urine pH 8.5, Ur Specific [place] 1.015, Urine Protein Trace, Urine Glucose (UA) Negative, Urine Ketones 3+, Urine Blood Negative, Urine Nitrate Negative, Urine Bilirubin 1+ A, Urine Urobilinogen 0.2, Ur Leukocyte Esterase Negative, Urine RBC None, Urine WBC Occasional, Ur Squamous Epith Cells Occasional, Urine Bacteria Trace, Urine Opiates Screen Positive H, Urine Methadone Screen Negative, Ur Barbituates Screen Negative, Ur Phencyclidine Scrn Negative, Ur Amphetamines Screen Negative, U Benzodiazepines Scrn Positive H, Urine Cocaine Screen Negative, U Marijuana (THC) Screen Positive H 12/19/23 11:45: VBG pH 7.56 H, VBG pCO2 20.1 L, VBG pO2 164.8 H, VBG HCO3 17.5 L, VBG Total CO2 18.1 L, VBG O2 Saturation 99.3 H, VBG Base Excess -4.7 L, VBG Lactic Acid 2.7 H 12/19/23 13:21: Troponin I < 0.01 12/19/23 16:25: Lactate 0.9 Orders (Tests/Meds): ED MEDICATIONS Generic Name Dose Route Start Last Admin Trade Name Alexq PRN Reason Stop Dose Admin Sodium Chloride 10 ml 12/19/23 09:33 Sodium Chloride 0.9% 10ml Flush Syringe IV 01/18/24 09:32 NEEDED PRN Maintain IV Site Sodium Chloride 10 ml 12/19/23 13:20 Sodium Chloride 0.9% 10ml Vial IV 01/18/24 13:19 NEEDED PRN to Dilute Lorazepam inj Discontinued Medications Generic Name Dose Route Start Last Admin Trade Name Freeddi PRN Reason Stop Dose Admin Hydromorphone HCl 0.5 mg 12/19/23 09:45 12/19/23 09:50 Hydromorphone 2mg/Ml Syringe IV 12/19/23 09:46 0.5 mg ONCE ONE Administration Hydromorphone HCl 0.5 mg 12/19/23 13:15 12/19/23 13:22 Hydromorphone 2mg/Ml Syringe IV 12/19/23 13:16 0.5 mg ONCE ONE Administration Hydromorphone HCl 0.5 mg 12/19/23 15:30 12/19/23 15:41 Hydromorphone 2mg/Ml Syringe IV 12/19/23 15:31 0.5 mg ONCE ONE Administration Hydromorphone HCl 1 mg 12/19/23 18:16 12/19/23 18:27 Hydromorphone 2mg/Ml Syringe IV 12/19/23 18:17 1 mg ONCE ONE Administration Lactated Ringer's 1,000 mls @ 999 mls/hr 12/19/23 09:40 12/19/23 09:50 Lactated Ringer's 1000 Ml Bag IV 12/19/23 10:40 999 mls/hr .Q1H1M ONE Administration Iopamidol 80 ml 12/19/23 13:35 12/19/23 13:36 Iopamidol-370 (76%);100ml Bottle IV 12/19/23 13:36 80 ml ONCE ONE Administration Lorazepam 1 mg 12/19/23 13:20 12/19/23 13:24 Lorazepam 2mg/Ml Vial IV 12/19/23 13:21 1 mg ONCE ONE Administration Morphine Sulfate 4 mg 12/19/23 11:35 12/19/23 11:39 Morphine 4mg/Ml Syringe IV 12/19/23 11:36 4 mg ONCE ONE Administration Ondansetron HCl 4 mg 12/19/23 09:40 12/19/23 09:50 Ondansetron 4mg/2ml Vial IV 12/19/23 09:41 4 mg ONCE ONE Administration Sodium Chloride 50 ml 12/19/23 13:35 12/19/23 13:35 0.9 % Sodium Chloride 50 Ml Vial IV 12/19/23 13:36 50 ml ONCE ONE Administration Sodium Chloride 10 ml 12/19/23 13:35 12/19/23 13:35 Sodium Chloride 0.9% 10ml Syr (Rad Only) IV 12/19/23 13:36 10 ml ONCE ONE Administration ORDERS Category Date Time Status CT abdomen pelvis wo con Stat Cat Scan 12/19/23 09:[address] angio abdomen pelvis Stat Cat Scan 12/19/23 13:[address] chest wo con Stat Cat Scan 12/19/23 09:41 Completed CBC w/Auto Diff [Complete Blood Count Auto Diff] Stat Lab 12/19/23 09:25 Completed CMP [Comprehensive Metabolic Panel] Stat Lab 12/19/23 09:25 Completed Drug Screen,Urine Stat Lab 12/19/23 11:27 Completed Lactic Acid Follow Up (RFLX 1) Stat Lab 12/19/23 16:25 Completed Lipase Stat Lab 12/19/23 09:25 Completed MAG [Magnesium] Stat Lab 12/19/23 09:25 Completed Troponin I Q3H Lab 12/19/23 09:25 Completed Troponin I Q3H Lab 12/19/23 13:21 Completed Urinalysis and Microscopic Stat Lab 12/19/23 11:27 Completed VBG [Venous Blood Gas] Stat RT 12/19/23 11:45 Completed Medical Decision Narrative: Patient with history and exam per above presenting for evaluation of abdominal pain Diagnoses considered include pancreatitis, PUD, mesenteric ischemia, ACS, PE, among others ED workup and treatment included: ED MEDICATIONS Generic Name Dose Route Start Last Admin Trade Name Freq PRN Reason Stop Dose Admin Sodium Chloride 10 ml 12/19/23 09:33 Sodium Chloride 0.9% 10ml Flush Syringe IV 01/18/24 09:32 NEEDED PRN Maintain IV Site Sodium Chloride 10 ml 12/19/23 13:20 Sodium Chloride 0.9% 10ml Vial IV 01/18/24 13:19 NEEDED PRN to Dilute Lorazepam inj Discontinued Medications Generic Name Dose Route Start Last Admin Trade Name Freq PRN Reason Stop Dose Admin Hydromorphone HCl 0.5 mg 12/19/23 09:45 12/19/23 09:50 Hydromorphone 2mg/Ml Syringe IV 12/19/23 09:46 0.5 mg ONCE ONE Administration Hydromorphone HCl 0.5 mg 12/19/23 13:15 12/19/23 13:22 Hydromorphone 2mg/Ml Syringe IV 12/19/23 13:16 0.5 mg ONCE ONE Administration Hydromorphone HCl 0.5 mg 12/19/23 15:30 12/19/23 15:41 Hydromorphone 2mg/Ml Syringe IV 12/19/23 15:31 0.5 mg ONCE ONE Administration Lactated Ringer's 1,000 mls @ 999 mls/hr 12/19/23 09:40 12/19/23 09:50 Lactated Ringer's 1000 Ml Bag IV 12/19/23 10:40 999 mls/hr .Q1H1M ONE Administration Iopamidol 80 ml 12/19/23 13:35 12/19/23 13:36 Iopamidol-370 (76%);100ml Bottle IV 12/19/23 13:36 80 ml ONCE ONE Administration Lorazepam 1 mg 12/19/23 13:20 12/19/23 13:24 Lorazepam 2mg/Ml Vial IV 12/19/23 13:21 1 mg ONCE ONE Administration Morphine Sulfate 4 mg 12/19/23 11:35 12/19/23 11:39 Morphine 4mg/Ml Syringe IV 12/19/23 11:36 4 mg ONCE ONE Administration Ondansetron HCl 4 mg 12/19/23 09:40 12/19/23 09:50 Ondansetron 4mg/2ml Vial IV 12/19/23 09:41 4 mg ONCE ONE Administration Sodium Chloride 50 ml 12/19/23 13:35 12/19/23 13:35 0.9 % Sodium Chloride 50 Ml Vial IV 12/19/23 13:36 50 ml ONCE ONE Administration Sodium Chloride 10 ml 12/19/23 13:35 12/19/23 13:35 Sodium Chloride 0.9% 10ml Syr (Rad Only) IV 12/19/23 13:36 10 ml ONCE ONE Administration ORDERS Category Date Time Status CT abdomen pelvis wo con Stat Cat Scan 12/19/23 09:[address] angio abdomen pelvis Stat Cat Scan 12/19/23 13:[address] chest wo con Stat Cat Scan 12/19/23 09:41 Completed CBC w/Auto Diff [Complete Blood Count Auto Diff] Stat Lab 12/19/23 09:25 Completed CMP [Comprehensive Metabolic Panel] Stat Lab 12/19/23 09:25 Completed Drug Screen,Urine Stat Lab 12/19/23 11:27 Completed Lactic Acid Follow Up (RFLX 1) Stat Lab 12/19/23 16:03 Ordered Lipase Stat Lab 12/19/23 09:25 Completed MAG [Magnesium] Stat Lab 12/19/23 09:25 Completed Troponin I Q3H Lab 12/19/23 09:25 Completed Troponin I Q3H Lab 12/19/23 13:21 Completed Urinalysis and Microscopic Stat Lab 12/19/23 11:27 Completed VBG [Venous Blood Gas] Stat RT 12/19/23 11:45 Completed Labs were independently interpreted by me, significant for chronic leukocytosis, however elevated in comparison to prior, white blood cell count 19, lactate 2.7, lipase 933 Imaging was independently visualized and interpreted by me, 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 Patient initially refused angiography with no explanation of declination, denies any history of contrast allergy or adverse reactions. I discussed with him my concern that he may have acute surgical pathology for which angiography would help distinguish cause and further management. After several discussions by myself and by nursing staff, he acquiesces to angiography. CTA revealing redemonstrated concern for SMA syndrome. Please refer to radiology report for full details. 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 He will benefit from transfer to outside facility with GI and vascular surgery available for further management and recommendations. Ishaan: I assumed primary responsibility for this patient after signout from previous physician. On my evaluation, patient no acute distress. He does state that he needs his pain medications because he takes them at home for chronic pain, has not received any in a while here. 1 mg Dilaudid was given. Patient more comfortable. Independent rotation patient's workup demonstrates nonactionable CBC overall, chemistry normal. Patient's lipase elevated over 900. CT of the abdomen and pelvis without acute intra-abdominal abnormality other than concern for SMA syndrome with stomach and proximal duodenum dilation with distal decompression. Initially, [facility] SMA syndrome. Recommended calling vascular surgery at [facility]. [facility] was contacted and vascular surgeon was brought onto the call, vascular surgery stated that this is a problem managed by general surgery. General surgery was contacted and case was discussed at length. They recommended gastroenterology consultation for potential scope given appearance on CT. Stated they were concerned about the compression happening prior to the SMA as well as having some distal dilation of bowel. Concerned about potential malignancy in the area, recommended EGD. Gastroenterology was contacted and case was discussed at length, patient graciously accepted. Because patient high risk for clinical decompensation if discharged, deemed appropriate for transfer and inpatient admission. Results were relayed to patient who voiced understanding and patient was agreeable to transfer, inpatient admission, and management. Patient was graciously accepted and transferred to for further definitive management, under Dr. Ramirez. Critical Care <Devonte Greene MD - Last Filed: 12/19/23 16:19> Critical Care Time Critical Care Time: No <German Quiros MD - Last Filed: 12/19/23 19:39> Critical Care Time Critical Care Time: Yes (GI) Attestation: On 12/19/23, the high probability of a clinically significant, sudden or life threatening deterioration of the following system(s) required my full and direct attention, intervention and personal management. The time I documented below is in addition to time spent performing reported procedures but includes the following listed in this critical care notation. Total Time Total Critical Care Time: 45
--- NOTE | 2023-12-19 09:40 | CT_ITS ---
FINAL REPORT TECHNIQUE: Axial images through the abdomen and pelvis were performed without contrast. This study was performed with techniques to keep radiation doses as low as reasonably achievable, (ALARA). Individualized dose reduction techniques using automated exposure control or adjustment of mA and/or kV according to the patient's size were employed. CLINICAL HISTORY: diffuse abdominal pain, polysubstance use COMPARISON: 11/08/2023 FINDINGS: Abdomen: The lung bases are clear. Mild fatty infiltration of the liver is present. The gallbladder has been surgically resected. The first and second portions of the duodenum are distended, with an abrupt change in caliber at the SMA crossing, best seen on images #43 through 47 of series 4. There are several other nonspecific fluid-filled small bowel loops present in the upper abdomen. The spleen, pancreas, adrenals and kidneys are unremarkable. Pelvis: The urinary bladder is unremarkable. The appendix is not visualized. There is no pelvic mass or inflammation. IMPRESSION: Distention of the first and second portions of the duodenum, with an abrupt change in caliber at the level of the SMA crossing as described above. This may represent SMA syndrome. There are also other nonspecific fluid-filled loops of small bowel present, that may represent an enteritis. Reviewed, Interpreted and Dictated by Elmer Macias MD Transcribed by Megan Choudhary Authenticated and [facility]
--- NOTE | 2023-12-19 09:41 | CT_ITS ---
FINAL REPORT TECHNIQUE: Axial images through the chest were performed by computed tomography without intravenous contrast administration. This study was performed with techniques to keep radiation doses as low as reasonably achievable, (ALARA). Individualized dose reduction techniques using automated exposure control or adjustment of mA and/or kV according to the patient's size were employed. CLINICAL HISTORY: diffuse abdominal pain, polysubstance use COMPARISON: None FINDINGS: CT CHEST WITHOUT CONTRAST: Calcified granulomas are present in the right lower lobe. No infiltrates or pulmonary masses are identified. The heart size is normal. There is no pericardial or pleural effusion. Limited images of the upper abdomen are unremarkable. No nodules are visualized. Calcified right hilar nodes are noted. IMPRESSION: No acute process. Reviewed, Interpreted and Dictated by Elmer Macias MD Transcribed by Megan Choudhary Authenticated and [facility]
[2023-12-19] MEDS: ONDANSETRON 4MG/2ML VIAL 4 MG IV (09:50)
[2023-12-19] MEDS: LACTATED RINGERS 1000ML 1,000 ML 999 ML IV (09:50)
[2023-12-19] MEDS: HYDROMORPHONE 2MG/ML SYRINGE 0.5 MG IV ×3 (09:50→15:41)
[2023-12-19 09:52] LABS: Basophils # 0.1 K/mm3 (0-0.2); Basophils % 0.2 % (0.1-2.0); Eosinophils # 0.1 K/mm3 (0.0-0.4); Eosinophils % 0.3 % (0.1-12.0); Hematocrit 49.5 % (42.0-52.0); Hemoglobin 16.2 g/dL (14.1-18.0); Lymphocytes # 1.3 K/mm3 (0.7-4.5); Lymphocytes % 6.5 % (10-50); Mean Corpuscular HGB Conc 32.7 g/dL (31.8-35.4); Mean Corpuscular Hemoglobin 28.5 pg (27.0-31.2); Mean Corpuscular Volume 87.2 fl (80-94); Mean Platelet Volume 7.8 fl (7.4-10.4); Monocytes # 0.5 K/mm3 (0.1-1.0); Monocytes % 2.7 % (1.7-9.3); Neutrophils # 17.3 K/mm3 (1.8-7.8); Neutrophils % 90.2 % (37.0-80.0); Platelet Count 566 K/mm3 (142-424); Red Blood Count 5.68 M/mm3 (4.60-6.20); Red Cell Distribution Width 13.3 % (11.5-17.5); White Blood Count 19.2 K/mm3 (4.8-10.8)
[2023-12-19 10:00] LABS: Albumin Level 5.1 g/dl (3.5-5.0); Chloride 102 mmol/L (98-107); Potassium 3.8 mmoL/L (3.5-5.1); Sodium 138 mmol/L (136-145)
[2023-12-19 10:03] LABS: Alanine Aminotransferase 28 U/L (12-78); Albumin/Globulin Ratio 1.5 (1.1-1.8); Alkaline Phosphatase 80 U/L (38-126); Anion Gap 14.8 mEq/L (5-15); Aspartate Amino Transferase 31 U/L (17-59); Bilirubin,Total 1.2 mg/dl (0.2-1.3); Blood Urea Nitrogen 15 mg/dl (9-20); Carbon Dioxide 25 mmol/L (22.0-30.0); Creatinine Clearance Estimated 69 mL/min (50-200); Estimated Glomerular Filt Rate 70 ml/min (>60); GFR (African American) 85 ML/MIN (>60); Globulin 3.3 g/dL (1.3-3.2); Glucose 123 mg/dl (74-100); Total Protein,Serum 8.4 g/dl (6.3-8.2)
[2023-12-19 10:04] LABS: Magnesium 1.7 mg/dl (1.6-2.3)
[2023-12-19 10:26] LABS: Troponin I < 0.01 ng/ml (0.00-0.034)
[2023-12-19 10:27] LABS: Lipase 933 U/L (23-300)
--- NOTE | 2023-12-19 10:29 | PC.NURSE ---
aware of critical lipase results 605
--- NOTE | 2023-12-19 10:49 | HMH.ITSTN ---
pt stated he did not want contrast for his CT scans; per ER MD verbal to change scans to without contrast.
[2023-12-19] MEDS: MORPHINE 4MG/ML SYRINGE 4 MG IV (11:39)
[2023-12-19 11:53] LABS: Microscopic, Urine URINE MICROSCOPIC (MICROSCOPIC)
[2023-12-19 11:53] LABS: MANUAL DIFFERENTIAL MANUAL DIFFERENTIAL (MANUAL DIFF)
[2023-12-19 12:00] LABS: VBG Base Excess -4.7 mmol/L (-2.4-2.3); VBG HCO3 17.5 mmol/L (23-30); VBG Oxygen Saturation 99.3 % (50-70); VBG PO2 164.8 mmol/L (28-40); VBG Total CO2 18.1 mmol/L (23-27)
[2023-12-19 12:00] LABS: Barbiturates Screen,Urine Negative ng/ml (<200)
[2023-12-19 12:01] LABS: Benzodiazepines Screen,Urine Positive ng/ml (<200)
[2023-12-19 12:02] LABS: Cannabinoid Screen,Urine Positive ng/ml (<50)
[2023-12-19 12:03] LABS: Cocaine Screen,Urine Negative ng/ml (<300); Methadone Screen,Urine Negative ng/ml (<300)
[2023-12-19 12:04] LABS: Opiate Screen,Urine Positive ng/ml (<300); Phencyclidine Screen,Urine Negative ng/ml (<25)
[2023-12-19 12:04] LABS: Lactate Venous 2.7 mmol/L (0.4-2.0); VBG PCO2 20.1 mmol/L (35-51); VBG PH 7.56 mmol/L (7.31-7.41)
[2023-12-19 12:07] LABS: Amphetamine/Metha Screen,Urine Negative ng/ml (<1000)
[2023-12-19 12:11] LABS: Appearance,Urine CLEAR (Clear); Blood, Urine Negative (Negative); Color,Urine YELLOW (Yellow); Glucose,Urine (UA) Negative (Negative); Ketones,Urine 3+ (Negative); Leukocyte Esterase,Urine Negative (Negative); Nitrate,Urine Negative (Negative); PH,Urine 8.5 (5.0-8.5); Protein,Urine TRACE (Negative); Specific Gravity, Urine 1.015 (1.005-1.030); Urobilinogen,Urine 0.2 EU/dl (0.2)
[2023-12-19 12:19] LABS: Bacteria,Urine Trace /lpf; Bilirubin,Urine 1+ (Negative); Squamous Epithelial Cell,Urine Occasional #/hpf (0-5); WBC,Urine Occasional #/hpf (0-3)
[2023-12-19 13:05] LABS: Lymphocytes % 5 % (10-50); Monocytes % 5 % (2-9); Neutrophils % 90 % (42-76); Platelet Estimate Slight Increase; RBC Morphology Normal; Total Cells Counted 100
--- NOTE | 2023-12-19 13:06 | PC.NURSE ---
on phone with hospitalist
--- NOTE | 2023-12-19 13:20 | CT_ITS ---
FINAL REPORT TECHNIQUE: Pre-and postcontrast images of the abdomen and pelvis were performed by computed tomography. Extensive 3-D reconstruction images were performed. A CTA was performed. This study was performed with techniques to keep radiation doses as low as reasonably achievable (ALARA). Individualized dose reduction techniques using automated exposure control or adjustment of mA and/or kV according to the patient''s size were employed. CLINICAL HISTORY: elevated lipase, noncon poss SMA syndrome, IVDU COMPARISON: 11/08/2023 FINDINGS: ABDOMEN/PELVIS: There is mild fatty infiltration of the liver. The gallbladder is absent. Calcified granulomas are noted within the spleen. The pancreas, adrenals and kidneys are unremarkable. There is fluid distension of the 2nd portion of the duodenal measuring up to 4.4 cm in diameter. There is marked change in caliber of the duodenal at the level of the crossing of the SMA concerning for SMA syndrome. There are multiple fluid-filled loops of jejunum which are nonspecific measuring up to 4 cm. The appendix is normal. There is no pelvic free fluid. There is a moderate amount of stool throughout the colon. CTA: The celiac axis is widely patent. There is approximately 50% stenosis of the proximal SMA well seen on image 94 of series 1002. The VIKTOR is patent. There is mild vascular calcification of the common iliac arteries. IMPRESSION: Apparent extrinsic compression of the 3rd portion of the duodenum concerning for SMA syndrome 50% narrowing of the proximal SMA. Reviewed, Interpreted and Dictated by Elmer Macias MD Transcribed by Lorin Lezama Authenticated and [facility]
[2023-12-19] MEDS: LORazepam 2MG/ML VIAL 1 MG IV (13:24)
[2023-12-19] MEDS: 0.9 % SODIUM CHLORIDE 50 ML VIAL IV (13:35)
[2023-12-19] MEDS: SODIUM CHLORIDE 0.9% 10ML SYR (RAD ONLY) 10 ML IV (13:35)
[2023-12-19] MEDS: IOPAMIDOL-370 (76%);100ML BOTTLE 80 ML IV (13:36)
[2023-12-19 14:03] LABS: Troponin I < 0.01 ng/ml (0.00-0.034)
--- NOTE | 2023-12-19 14:07 | HMH.PHAINT1 ---
Pharmacy Intervention Comments: MEDICATION RECONCILIATION COMPLETED ON PATIENT USING EXTERNAL FILL HISTORY FROM PHARMACY AND [facility] REPORT. -SANGEETA SANDERS, MARQUESD
--- NOTE | 2023-12-19 15:50 | PC.NURSE ---
Called [facility] per Dr Greene to speak with somebody in GI about this pt. [facility] took the information and advised they would call back.
[2023-12-19 16:03] LABS: Reflex Lactic Add Lactic Reflex
--- NOTE | 2023-12-19 16:10 | PC.NURSE ---
Xavier o/p with [facility] at this time for possible transfer.
--- NOTE | 2023-12-19 16:12 | PC.NURSE ---
Myles called back and said that Dr Liam Diaz group in Vascular dept didnt do surgery and were not familiar with the SMA and therefore reccommend we try [facility]. Checked with Dr Greene and he said that was fine and we would contact [facility]
[2023-12-19 16:39] LABS: Lactic Acid Follow Up (RFLX 1) 0.9 mmol/L (0.7-2.1)
--- NOTE | 2023-12-19 17:01 | PC.NURSE ---
Called [facility] to get an update on a callback about this pt. Advised they were down to one provider but it shouldnt be too much longer
--- NOTE | 2023-12-19 17:27 | PC.NURSE ---
radiology aware to power share images to [facility]
--- NOTE | 2023-12-19 17:32 | PC.NURSE ---
[facility] waiting on images and will call back at 1800
--- NOTE | 2023-12-19 18:19 | PC.NURSE ---
Called [facility] back to see if they had an update on if they received the images that were powershared again. [facility] advised that they would check on it and call us back
[2023-12-19] MEDS: HYDROMORPHONE 2MG/ML SYRINGE 1 MG IV ×2 (18:27→19:57)
--- NOTE | 2023-12-19 18:50 | PC.NURSE ---
called back and is speaking with Dr Quiros now
--- NOTE | 2023-12-19 18:55 | PC.NURSE ---
Vascular surgery at spoke with Dr Quiros and advised him that it was not a vascular or GI problem but that it was General Surgery and they would have them call back and speak to Dr Quiros.
--- NOTE | 2023-12-19 19:09 | PC.NURSE ---
to call back with GI per Dr. Quiros
--- NOTE | 2023-12-19 20:14 | PC.NURSE ---
call placed to din[facility] [phone]. report given. all copies made and given to sabina muñoz,[id number]
== END 2023-12-19 20:22 | disposition short-term general hospital (02) ==
PROVIDERS: Emergency Medicine; Emergency Provider Emergency Medicine
DX: R10.13 Epigastric pain (principal); K55.1 Chronic vascular disorders of intestine; K85.90 Acute pancreatitis without necrosis or infection, unspecified; R74.02 Elevation of levels of lactic acid dehydrogenase [LDH]; D72.829 Elevated white blood cell count, unspecified; F17.210 Nicotine dependence, cigarettes, uncomplicated; I10 Essential (primary) hypertension; E78.5 Hyperlipidemia, unspecified
CPT/HCPCS: 71250; 74174; 74176; 80053; 80307; 81001; 82803; 83605; 83690; 83735; 84484; 85007; 85025; 85027; 93005; 96361; 96374; 96375; 96376; 99285; J1170; J2060; J2270; J2405; J7120; Q9967

== ENCOUNTER 2024-09-13 13:13 | Emergency (ER) | payer OTHER, SELFPAY ==
[2024-09-13 13:20] VITALS: BP 133/96; PULSE 114; RESP 18; TEMP 36.7; O2SAT 100; BMI 25.8
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
--- NOTE | 2024-09-13 13:28 | CT_ITS ---
PROCEDURE INFORMATION: Exam: CT Abdomen And Pelvis With Contrast Exam date and time: 09/13/2024 2:16 PM Age: 54 years old Clinical indication: Abdominal pain; Epigastric; Additional info: Epigastric abdominal pain, h/o pancreatitis TECHNIQUE: Imaging protocol: Computed tomography of the abdomen and pelvis with contrast. Radiation optimization: All CT scans at this facility use at least one of these dose optimization techniques: automated exposure control; mA and/or kV adjustment per patient size (includes targeted exams where dose is matched to clinical indication); or iterative reconstruction. Contrast material: ISOVUE; Contrast volume: 75 ml; Contrast route: IV; COMPARISON: CT ANGIO ABDOMEN PELVIS 12/19/2023 1:36 PM FINDINGS: Coronary arteries: Coronary artery calcifications may indicate coronary artery disease. Liver: Normal. No mass. Gallbladder and biliary ducts: Cholecystectomy Pancreas: Pancreatic atrophy . No evidence of pancreatitis Spleen: Normal. No splenomegaly. Adrenal glands: Normal. No mass. Kidneys and ureters: There is no evidence of renal or ureteral calcifications. Stomach and bowel: Findings consistent with constipation. Multiple loops of mildly dilated fluid-filled small bowel may represent ileus or early obstruction. Appendix: Normal appendix Intraperitoneal space: Unremarkable. No free air. No significant fluid collection. Vasculature: Unremarkable. No abdominal aortic aneurysm. Lymph nodes: Unremarkable. No enlarged lymph nodes. Urinary bladder: Unremarkable as visualized. Reproductive: Unremarkable as visualized. Bones/joints: Compression fracture of L1 was present in 2023 Soft tissues: Unremarkable. IMPRESSION: Multiple loops of mildly dilated fluid-filled small bowel may represent ileus or early obstruction.
--- NOTE | 2024-09-13 13:44 | PC.NURSE ---
Lab to bedside to perform blood draw
[2024-09-13 13:48] LABS: Basophils # 0.1 K/mm3 (0-0.2); Basophils % 0.4 % (0.1-2.0); Eosinophils # 0.1 Kmm3 (0.0-0.4); Eosinophils % 0.7 % (0.1-12.0); Hematocrit 43.5 % (42.0-52.0); Hemoglobin 14.8 g/dL (14.1-18.0); Immature Granulocytes # 0.05 10^3uL; Immature Granulocytes % 0.4 %; Lymphocytes # 2.9 K/mm3 (0.7-4.5); Lymphocytes % 21.2 % (10-50); Mean Corpuscular Hemoglobin 30.3 pg (27.0-31.2); Mean Corpuscular Volume 89.1 fl (80-94); Mean Platelet Volume 8.8 fl (7.4-10.4); Monocytes # 0.9 K/mm3 (0.1-1.0); Neutrophils # 9.5 K/mm3 (1.8-7.8); Neutrophils % 70.3 % (37.0-80.0); Nucleated Red Blood Cells # 0 10^3/uL; Nucleated Red Blood Cells % 0 %; Platelet Count 403 K/mm3 (142-424); Red Blood Count 4.88 M/mm3 (4.60-6.20); Red Cell Distribution Width 12.2 % (11.5-17.5); Red Cell Distribution Width-SD 39.9 fL; White Blood Count 13.5 K/mm3 (4.8-10.8)
[2024-09-13] MEDS: ONDANSETRON 4MG/2ML VIAL 4 MG IV (13:48)
[2024-09-13] MEDS: 0.9 % SODIUM CHLORIDE 1000ML 1,000 ML 999 ML IV (13:48)
--- NOTE | 2024-09-13 13:52 | PC.NURSE ---
Pt states he is unable to provide urine sample at this time. Urinal provided.
[2024-09-13 14:00] LABS: Lipase 364 U/L (23-300)
[2024-09-13 14:01] LABS: Alanine Aminotransferase 46 U/L (12-78); Albumin Level 4.9 g/dl (3.5-5.0); Albumin/Globulin Ratio 1.9 (1.1-1.8); Alkaline Phosphatase 58 U/L (38-126); Anion Gap 13.2 mEq/L (5-15); Aspartate Amino Transferase 48 U/L (17-59); Bilirubin,Total 0.4 mg/dl (0.2-1.3); Blood Urea Nitrogen 7 mg/dl (9-20); Calcium 9.4 mg/dl (8.4-10.2); Carbon Dioxide 24 mmol/L (22.0-30.0); Chloride 103 mmol/L (98-107); Creatinine Clearance Estimated 92 mL/min (50-200); Estimated Glomerular Filt Rate 78 ml/min (>60); GFR (African American) 94 ML/MIN (>60); Globulin 2.6 g/dL (1.3-3.2); Glucose 122 mg/dl (74-100); Potassium 4.2 mmoL/L (3.5-5.1); Sodium 136 mmol/L (136-145); Total Protein,Serum 7.5 g/dl (6.3-8.2)
--- NOTE | 2024-09-13 14:09 | PC.NURSE ---
pt going for CT at this time
[2024-09-13] MEDS: IOPAMIDOL-370 (76%);100ML BOTTLE 75 ML IV (14:16)
[2024-09-13] MEDS: SODIUM CHLORIDE 0.9% 10ML SYR (RAD ONLY) 10 ML IV (14:16)
[2024-09-13 14:18] LABS: Procalcitonin 0.084 ng/mL (0.0-2.0)
[2024-09-13 14:42] LABS: Microscopic, Urine URINE MICROSCOPIC (MICROSCOPIC)
[2024-09-13 14:44] LABS: Appearance,Urine CLEAR (Clear); Bilirubin,Urine Negative (Negative); Blood, Urine Negative (Negative); Color,Urine YELLOW (Yellow); Glucose,Urine (UA) Negative (Negative); Ketones,Urine Negative (Negative); Leukocyte Esterase,Urine Negative (Negative); Nitrate,Urine Negative (Negative); PH,Urine 6.5 (5.0-8.5); Protein,Urine Negative (Negative); Specific Gravity, Urine <= 1.005 (1.005-1.030); Urobilinogen,Urine 0.2 EU/dl (0.2)
[2024-09-13 14:59] LABS: Barbiturates Screen,Urine Negative ng/ml (<200)
[2024-09-13 15:00] LABS: Benzodiazepines Screen,Urine Positive ng/ml (<200)
[2024-09-13 15:01] LABS: Amphetamine/Metha Screen,Urine Negative ng/ml (<1000); Cannabinoid Screen,Urine Positive ng/ml (<50)
[2024-09-13 15:02] LABS: Cocaine Screen,Urine Negative ng/ml (<300); Methadone Screen,Urine Positive ng/ml (<300)
[2024-09-13 15:03] LABS: Opiate Screen,Urine Negative ng/ml (<300)
[2024-09-13 15:04] LABS: Phencyclidine Screen,Urine Negative ng/ml (<25)
--- NOTE | 2024-09-13 15:29 | PC.NURSE ---
patient did fine with PO challenge at this time.
[2024-09-13 15:40] VITALS: BP 121/87; PULSE 81; RESP 18; TEMP 36.9; O2SAT 98
== END 2024-09-13 15:40 ==
PROVIDERS: Physician Assistant; Emergency Provider Emergency Medicine
DX: R10.13 Epigastric pain (principal); K86.1 Other chronic pancreatitis; F19.10 Other psychoactive substance abuse, uncomplicated; F17.210 Nicotine dependence, cigarettes, uncomplicated
CPT/HCPCS: 74177; 80053; 80307; 81001; 83690; 84145; 85025; 96361; 96374; 99284; J2405; J7030; Q9967